=== PATIENT | female | born 1940 | race Caucasian/White ===

== ENCOUNTER → 2017-07-11 | Outpatient (CLI) | payer BC, MEDICARE ==
--- NOTE | 2017-07-11 17:15 | BD ---
EXAMINATION TYPE: MG DEXA axial skeleton. DATE OF EXAM: 07/11/2017 COMPARISON: NONE CLINICAL HISTORY: 76-year-old female with thoracolumbar postural kyphosis, postmenopausal screening Height: 56.5 IN. VERY KYPHOTIC Weight: 122 LBS FRAX RISK QUESTIONS: Alcohol (3 or more units per day): NO Family History (Parent hip fracture): NO Glucocorticoids (More than 3mos): NO (Ex: prednisone, prednisolone, methylprednisolone, dexamethasone, and hydrocortisone). History of Fracture in Adulthood: YES LEFT WRIST AGE 48 Secondary Osteoporosis: 1. Type 1 Diabetes: NO 2. Hyperthyroidism: NO 3. Menopause before 45: YES AGE 32 4. Malnutrition: NO 5. Chronic liver disease: NO Rheumatoid Arthritis: NO Current Tobacco Use: NO RISK FACTORS HISTORY OF: Hip Fracture (Right): When: AGE 70 AND 71 History of Wrist Fracture: YES When: LT WRIST AGE 48 Surgery to Spine/Hip(right) : YES When: AGE 70 Family History of Osteoporosis: MOTHER Active: NO Postmenopausal woman: AGE 32 Lost more than 2 inches in height since high school: YES 6" MEDICATIONS: Thyroid Medications: YES Which medication: Levothyroxine How Lon+ YEARS Osteoporosis Medications: NOT NOW Which medication: DOES NOT KNOW How Lon YEAR Additional Medications: THYROID AND BLOOD PRESSURE EXAM MEASUREMENTS: Bone mineral densitometry was performed using the [employer] System. L-SPINE NOT DONE PT HAD A FUSION Bone mineral density about the L hip (g/cm2): 0.585 T Score values are as follows: -----L Neck: -3.3 -----L Total: -3.0 Bone mineral density BASELINE IMPRESSION: Osteoporosis (T Score less than -2.5). There is increased fracture risk and therapy is usually indicated based on age. Re-Screen 1-2 years. NOTE: T-SCORE=SD OF THE YOUNG ADULT MEAN.
== END | disposition home or self-care (01) ==
LOC: RADBDWWP 13:05
PROVIDERS: ATTEND Family Medicine
DX: M81.0 Age-related osteoporosis without current pathological fracture (principal)
CPT/HCPCS: 77080

== ENCOUNTER 2017-07-14 13:40 | Inpatient (IN) | payer MEDICARE ==
[2017-07-14] MEDS ORDERED: PIPERACILLIN-TAZOBACTAM 3.375 GM in DEXTROSE/WATER 1 50ML.BAG IVPB STA (13:52)
[2017-07-14] MEDS ORDERED: VANCOMYCIN IV PER PHARMACY 1 EACH MISC MISCELLANE PRN (13:52)
[2017-07-14] MEDS ORDERED: VANCOMYCIN 1,000 MG in SODIUM CHLORIDE 0.9% 250 ML IVPB STA (14:29)
[2017-07-14] MEDS ORDERED: cefTRIAXone 2,000 MG in SODIUM CHLORIDE 0.9% 100 ML IVPB STA ×2 (14:44→14:48)
[2017-07-14 14:50] LABS: Basophils % (A) 0 %; Eosinophils % (A) 0 %; HCT 37.1 % (34.0-46.0); HGB 12.4 gm/dL (11.4-16.0); Lymphocytes # (A) 0.6 k/uL (1.0-4.8); Lymphocytes % (A) 5 %; MCH 30.6 pg (25.0-35.0); MCHC 33.5 g/dL (31.0-37.0); Mean Platelet Volume 7.6; Monocytes # (A) 0.7 k/uL (0-1.0); Monocytes % (A) 6 %; Neutrophils # (A) 9.9 k/uL (1.3-7.7); Neutrophils % (A) 88 %; Platelet Count 273 k/uL (150-450); RBC 4.06 m/uL (3.80-5.40); RDW 13.1 % (11.5-15.5); WBC 11.3 k/uL (3.8-10.6)
[2017-07-14 14:52] LABS: Appearance,Urine Turbid (Clear); Bacteria,Urine Occasional /hpf; Bilirubin,Urine Negative (Negative); Blood,Urine Trace (Negative); Color,Urine Light Red; Glucose,Urine (UA) Negative (Negative); Ketones,Urine Negative (Negative); Leukocyte Esterase,Urine Small (Negative); MCV 91.4 fL (80.0-100.0); Nitrite,Urine Negative (Negative); PH, Urine 8.5 (5.0-8.0); Partial Thromboplastin Time 23.2 sec (22.0-30.0); Protein,Urine 3+ (Negative); Prothrombin Time 10.1 sec (9.0-12.0); RBC,Urine 10 /hpf (0-5); Specific Gravity,Urine 1.016 (1.001-1.035); Urobilinogen,Urine <2.0 mg/dL (<2.0); WBC,Urine 52 /hpf (0-5)
[2017-07-14 14:57] LABS: Albumin 3.7 g/dL (3.5-5.0); Potassium 4.2 mmol/L (3.5-5.1); Total Bilirubin 0.4 mg/dL (0.2-1.3); Total Protein 6.7 g/dL (6.3-8.2)
--- NOTE | 2017-07-14 14:58 | CT ---
EXAMINATION: CT brain wo con DATE AND TIME: 07/14/2017 2:47 PM ORDERING PROVIDER: Jenn Reyes MD CLINICAL INDICATION: Pain TECHNIQUE: Standard departmental protocol. COMPARISON: None. DESCRIPTION: The calvarium is intact. There is no intracranial hemorrhage. There is no mass or mass e ffect. There is no definite new attenuation defect. Remainder of the intra-axial and extra-axial comp artment examination is unremarkable. The paranasal sinuses, middle ear cavities, and mastoid sinus ai r cells are clear. The orbits are intact. IMPRESSION: NO ACUTE PROCESS.
[2017-07-14] MEDS ORDERED: cefTRIAXone IN SWFI 2,000 MG/20 ML SYRINGE IVP ONE (15:00)
[2017-07-14] MEDS: SODIUM CHLORIDE 0.9% 500 ML IV SCH ×2 (15:01→17:06)
[2017-07-14 15:19] LABS: Creatine Kinase MB 47.5 ng/mL (0.0-2.4)
--- NOTE | 2017-07-14 15:19 | XR ---
EXAMINATION: XR chest 2V DATE AND TIME: 07/14/2017 3:01 PM ORDERING PROVIDER: Jenn Reyes MD CLINICAL INDICATION: Fever TECHNIQUE: PA and lateral COMPARISON: None. DESCRIPTION: There is a fine reticular pattern of increased density throughout the lung parenchyma wh ich silhouettes the pulmonary vasculature to a moderate-marked degree and is associated with septal l lynda at the periphery bilaterally. These findings are consistent with interstitial phase pulmonary ed evan. There is no focal lung consolidation to suggest cielo bronchopneumonia. No pleural effusions; no abnormal gas collections. Bilateral apical pleural thickening is noted, greater on the left. The overlying ribs are intact. Mildly enlarged cardiac silhouette and tortuosity of the thoracic aorta noted. No acute bony or soft tissue findings. IMPRESSION: 1. INTERSTITIAL PHASE PULMONARY EDEMA, PRESUMABLY CARDIOGENIC ETIOLOGY. 2. Bilateral apical capping noted, with prominent on the left. There are no prior studies with which to compare. If none can be found for a comparison addendum could be made to this report, then would suggest 3 month interval follow-up CT to further characterize.
[2017-07-14 15:20] LABS: Troponin I 0.089 ng/mL (0.000-0.034)
--- NOTE | 2017-07-14 15:21 | XR ---
PROCEDURE: XR Hip Complete RT 2 views DATE AND TIME: 07/14/2017 3:01 PM REFERRING PHYSICIAN: Jenn Reyes MD CLINICAL INDICATION: PHH, Pain TECHNIQUE: AP and frog-leg lateral coned radiographs were obtained. COMPARISON: None FINDINGS: The hip prosthesis is intact. No periprosthesis lucencies. There is no fracture or malalign ment. The soft tissues are unremarkable. IMPRESSION: NO ACUTE PROCESS.
--- NOTE | 2017-07-14 16:05 | XR ---
PROCEDURE: XR ankle complete bilateral, 6 views DATE AND TIME: 07/14/2017 3:53 PM REFERRING PHYSICIAN: Jenn Reyes MD CLINICAL INDICATION: PHH, Pain. Bilateral wounds to area of distal anterior ankle/proximal dorsal dana t TECHNIQUE: Department protocol. COMPARISON: None FINDINGS: Bones and joints and soft tissues, of the right ankle and the left ankle, are unremarkable. IMPRESSION: NO ACUTE PROCESS.
--- NOTE | 2017-07-14 16:09 | XR ---
PROCEDURE: XR lumbar spine 3V DATE AND TIME: 07/14/2017 3:53 PM REFERRING PHYSICIAN: Jenn Reyes MD CLINICAL INDICATION: PHH, Pain TECHNIQUE: Department protocol. COMPARISON: None FINDINGS: Methylmethacrylate is seen within the L2 vertebral body posteriorly, appearing to represent postvertebroplasty change. There is moderate compression of the L2 vertebral body. At L3, there is marked compression of the vertebral body. No other findings. IMPRESSION: L2 and L3 vertebral body compressions, determining their age can't be assessed with MRI if necessary.
[2017-07-14] MEDS ORDERED: NALOXONE 0.4 MG/ML 1 ML VIAL IV PRN (16:43)
--- NOTE | 2017-07-14 16:43 | ED ---
Fall HPI - General Chief Complaint: Fall Stated Complaint: ALTERED MENTAL STATUS Time Seen by Provider: 07/14/17 13:48 Source: patient, EMS Mode of arrival: EMS - History of Present Illness Initial Comments: 76 years old female lives home alone the area and also her last night she was doing fine today she went to check on her and she found her on the floor we don' t exactly how long she been on the floor she injured her both ankles they were stuck under the bed and she also has a large wound on her right hip. She has had for patient is complaining about headache and right ear pain pain in the both ankles and pain in the lumbar spine, she do not recall the details about the fall she do not know how long she been on the floor. Denies any chest pain now she'll no shortness of breath no abdominal pain she does have a pain in the lower back - Related Data Home Medications Medication Instructions Recorded Confirmed Levothyroxine Sodium [Synthroid] 112 mcg PO DAILY 07/14/17 07/14/17 Allergies Allergy/AdvReac Type Severity Reaction Status Date / Time Penicillins Allergy Unknown Verified 07/14/17 14:22 Review of Systems ROS Statement: Those systems with pertinent positive or pertinent negative responses have been documented in the HPI. ROS Other: All systems not noted in ROS Statement are negative. Past Medical History Past Medical History: Hypertension, Thyroid Disorder History of Any Multi-Drug Resistant Organisms: None Reported Past Surgical History: Appendectomy, Hysterectomy Additional Past Surgical History / Comment(s): hip hemorroids Past Psychological History: No Psychological Hx Reported Smoking Status: Former smoker Past Alcohol Use History: None Reported Past Drug Use History: None Reported General Exam - General Exam Comments Initial Comments: General: The patient is awake , looks pale and sick GCS is 15 Skin: Skin is warm and dry and no rashes or lesions are noted. There is a large wound on the right greater trochanter area is about 7 cm in diameter noticed some erythema surrounding it might was swabbed Eye: Pupils are equal, round and reactive to light, extra-ocular movements are intact; there is normal conjunctiva bilaterally. Ears, nose, mouth and throat: There are moist mucous membranes and no oral lesions. Neck: The neck is supple, there is no tenderness or JVD. Cardiovascular: There is a regular rate and rhythm. No murmur, rub or gallop is appreciated. Respiratory: To auscultation bilateral, decreased breath sounds bilateral noticed some crackles at the bases right more than the left Gastrointestinal: Soft, non-distended, non-tender abdomen without masses or organomegaly noted. There is no rebound or guarding present. Bowel sounds are unremarkable. Back: There is no tenderness to palpation in the midline. There is no obvious deformity. Musculoskeletal: Normal ROM, no tenderness, There is no pedal edema. There is no calf tenderness or swelling. No cords were appreciated. Noticed some erythema as well as skin tear around the ankle on the left one is at the proximal dorsal surface 1.5 x 0.3 cm this wound looks old, noticed some contusion on the right ankle as well there was no tear or laceration Neurological: CN II-XII intact, Cranial nerves III through XII are intact. There are no obvious motor or sensory deficits. Coordination appears grossly intact. Speech is normal. Psychiatric: Cooperative, appropriate mood & affect, normal judgment. Limitations: no limitations Course Vital Signs 07/14/17 07/14/17 13:43 15:35 Temperature 96.9 F L Pulse Rate 59 L 73 Respiratory 18 18 Rate Blood Pressure 126/58 143/68 EKG is junctional rhythm ventricular rate is 62 [place] interval is, QRS duration is 80 QT/QTc is 454/460 review of this EKG does not demonstrate very clear P waves with the RN and are upright regular review of this EKG did not reveal any ST elevation or ST depression Patient was reassessed, white count is 11.3 creatinine is 1.20 was used to be 0.9 just a week ago her troponin is 0089 and x-rays unremarkable he is unremarkable head CT is unremarkable noticed that CK is quite elevated consistent with the abdomen is sinus troponin is elevated noticed some compression fractures on the lumbar spine, patient is currently admitted to Dr. Hays service, cardiology be consulted down considering troponin is elevated and she is given need a PT and OT for her compression fractures along with the pain meds that a consult nephrology for rehab go and infectious disease be consulted that as well Medical Decision Making - Lab Data Result diagrams: 07/14/17 14:20 07/14/17 14:20 Lab Results 07/14/17 07/14/17 07/14/17 Range/Units 14:20 14:20 14:20 WBC 11.3 H (3.8-10.6) k/uL RBC 4.06 (3.80-5.40) m/uL Hgb 12.4 (11.4-16.0) gm/dL Hct 37.1 (34.0-46.0) % MCV 91.4 D (80.0-100.0) fL MCH 30.6 (25.0-35.0) pg MCHC 33.5 (31.0-37.0) g/dL RDW 13.1 (11.5-15.5) % Plt Count 273 (150-450) k/uL Neutrophils % 88 % Lymphocytes % 5 % Monocytes % 6 % Eosinophils % 0 % Basophils % 0 % Neutrophils # 9.9 H (1.3-7.7) k/uL Lymphocytes # 0.6 L (1.0-4.8) k/uL Monocytes # 0.7 (0-1.0) k/uL Eosinophils # 0.0 (0-0.7) k/uL Basophils # 0.0 (0-0.2) k/uL PT (9.0-12.0) sec INR (<1.2) APTT (22.0-30.0) sec Sodium 139 (137-145) mmol/L Potassium 4.2 (3.5-5.1) mmol/L Chloride 103 (98-107) mmol/L Carbon Dioxide 22 (22-30) mmol/L Anion Gap 14 mmol/L BUN 45 H (7-17) mg/dL Creatinine 1.20 H (0.52-1.04) mg/dL Est GFR (CKD-EPI)AfAm 50 (>60 ml/min/1.73 sqM) Est GFR (CKD-EPI)NonAf 44 (>60 ml/min/1.73 sqM) Glucose 106 H (74-99) mg/dL Plasma Lactic Acid Hossein (0.7-2.0) mmol/L Calcium 11.0 H (8.4-10.2) mg/dL Total Bilirubin 0.4 (0.2-1.3) mg/dL AST 87 H (14-36) U/L ALT 42 (9-52) U/L Alkaline Phosphatase 100 (38-126) U/L Total Creatine Kinase 4556 H (30-135) U/L CK-MB (CK-2) 47.5 H* (0.0-2.4) ng/mL CK-MB (CK-2) Rel Index Troponin I 0.089 H* (0.000-0.034) ng/mL Total Protein 6.7 (6.3-8.2) g/dL Albumin 3.7 (3.5-5.0) g/dL Urine Color Urine Appearance (Clear) Urine pH (5.0-8.0) Ur Specific [place] (1.001-1.035) Urine Protein (Negative) Urine Glucose (UA) (Negative) Urine Ketones (Negative) Urine Blood (Negative) Urine Nitrite (Negative) Urine Bilirubin (Negative) Urine Urobilinogen (<2.0) mg/dL Ur Leukocyte Esterase (Negative) Urine RBC (0-5) /hpf Urine WBC (0-5) /hpf Urine Bacteria (None) /hpf 07/14/17 07/14/17 07/14/17 Range/Units 14:20 14:20 14:29 WBC (3.8-10.6) k/uL RBC (3.80-5.40) m/uL Hgb (11.4-16.0) gm/dL Hct (34.0-46.0) % MCV (80.0-100.0) fL MCH (25.0-35.0) pg MCHC (31.0-37.0) g/dL RDW (11.5-15.5) % Plt Count (150-450) k/uL Neutrophils % % Lymphocytes % % Monocytes % % Eosinophils % % Basophils % % Neutrophils # (1.3-7.7) k/uL Lymphocytes # (1.0-4.8) k/uL Monocytes # (0-1.0) k/uL Eosinophils # (0-0.7) k/uL Basophils # (0-0.2) k/uL PT 10.1 (9.0-12.0) sec INR 1.0 (<1.2) APTT 23.2 (22.0-30.0) sec Sodium (137-145) mmol/L Potassium (3.5-5.1) mmol/L Chloride (98-107) mmol/L Carbon Dioxide (22-30) mmol/L Anion Gap mmol/L BUN (7-17) mg/dL Creatinine (0.52-1.04) mg/dL Est GFR (CKD-EPI)AfAm (>60 ml/min/1.73 sqM) Est GFR (CKD-EPI)NonAf (>60 ml/min/1.73 sqM) Glucose (74-99) mg/dL Plasma Lactic Acid Hossein 1.0 (0.7-2.0) mmol/L Calcium (8.4-10.2) mg/dL Total Bilirubin (0.2-1.3) mg/dL AST (14-36) U/L ALT (9-52) U/L Alkaline Phosphatase (38-126) U/L Total Creatine Kinase (30-135) U/L CK-MB (CK-2) (0.0-2.4) ng/mL CK-MB (CK-2) Rel Index Troponin I (0.000-0.034) ng/mL Total Protein (6.3-8.2) g/dL Albumin (3.5-5.0) g/dL Urine Color Light Red Urine Appearance Turbid H (Clear) Urine pH 8.5 H (5.0-8.0) Ur Specific [place] 1.016 (1.001-1.035) Urine Protein 3+ H (Negative) Urine Glucose (UA) Negative (Negative) Urine Ketones Negative (Negative) Urine Blood Trace H (Negative) Urine Nitrite Negative (Negative) Urine Bilirubin Negative (Negative) Urine Urobilinogen <2.0 (<2.0) mg/dL Ur Leukocyte Esterase Small H (Negative) Urine RBC 10 H (0-5) /hpf Urine WBC 52 H (0-5) /hpf Urine Bacteria Occasional H (None) /hpf Disposition Clinical Impression: Fall, Rhabdomyolysis, Renal insufficiency, Unspecified open wound, right hip, initial encounter, Elevated troponin, Compression fracture Disposition: ADMITTED IP TO THIS HOSP Condition: Good Referrals: Jeevan Reilly DO [Primary Care Provider] - 1-2 days
[2017-07-14] MEDS ORDERED: ENOXAPARIN 30 MG/0.3 ML SYRINGE SQ STA (17:39)
[2017-07-14] MEDS: SODIUM CHLORIDE 0.9% 1,000 ML IV SCH (20:16)
[2017-07-14 20:29] LABS: Glucose,Whole Blood 81 mg/dL (75-99)
--- NOTE | 2017-07-14 21:11 | HP ---
HISTORY AND PHYSICAL DATE OF SERVICE: 07/14/2017. CHIEF COMPLAINT: Fall and change in mental status. HISTORY OF PRESENT ILLNESS: This 76-year-old woman with a past medical history of multiple medical problems including hypertension, hypothyroidism, appendectomy and hysterectomy, being followed by Dr. Reilly in the outpatient setting, apparently was found on the floor and the patient was down for an unknown length of time. The patient's ankles were stuck under the bed. The patient was confused. Patient has a large wound on her right hip. The patient was taken to [facility] and admitted for evaluation and treatment. There is no history of any fever, rigors. No headache or loss of consciousness. The patient is confused, is unable to give a coherent history. Multiple CT scans and x-rays were done. Brain CT scan showed no acute process. The chest x-ray showed interstitial lung edema and bilateral apical capping. Otherwise, hip x-rays showed no acute process. Ankle x-rays were also done which showed no acute process. Lumbar x-rays showed L2-L3 vertebral compression. Most of the history is taken from my discussion with staff. Otherwise the patient is being closely monitored at this time. PAST MEDICAL HISTORY: History of hypertension, hypothyroidism, history of appendectomy and hysterectomy. MEDICATIONS PRIOR TO ADMISSION: Levothyroxine 112 mcg p.o. daily. ALLERGIES: PENICILLIN. FAMILY HISTORY, SOCIAL HISTORY, REVIEW OF SYSTEMS: Could not be taken at length because of the patient's change in mental status. Previous history of smoking per chart. PHYSICAL EXAM: Patient is conscious, confused. Pulse 81, blood pressure 140/60, respirations 18, temperature 98.3, pulse ox 97% on 2 L. HEENT: Conjunctivae normal. Oral mucosa moist. NECK: No jugular venous distention. No carotid enlargement. CARDIOVASCULAR: S1 and S2 muffled. LUNGS: Breath sounds decreased at the bases. Few scattered rhonchi, no crackles. ABDOMEN: Soft, nontender. No mass palpable. LEGS: Bilateral leg swelling and erythema and cellulitis present. Also sacral decubitus present. NERVOUS SYSTEM: Higher functions as mentioned. Diffusely weak. LYMPHATICS: No lymph nodes palpable in the neck or axillae. SKIN: No rashes. LABS: WBC 11.3, otherwise lactic acid is 1. Calcium is 11. Creatinine kinase 4556. ASSESSMENT: 1. Fall and gait dysfunction. 2. Acute rhabdomyolysis. 3. Troponin 0.08, indeterminate. 4. Possible urinary tract infection with sepsis. 5. Increased WBC. 6. History of fall and gait dysfunction. 7. Cellulitis. 8. Sacral decubitus. 9. Hypertension. 10.Hypothyroidism. 11.History of appendectomy. 12.FULL CODE. RECOMMENDATIONS: In this 76-year-old woman who presented with multiple complex medical issues, we will monitor the patient closely, continue the current management and symptomatic treatment. We will initiate broad-spectrum IV antibiotics. I would also recommend consulting Infectious Disease as well as Cardiology. PT/OT evaluation. bunk house worker consultation. Possible ECF rehab. Guarded prognosis because of multiple complex medical problems. Further recommendations to follow. MMODL / IJN: [id number] /
[2017-07-15 06:23] LABS: Glucose,Whole Blood 64 mg/dL (75-99)
[2017-07-15 06:28] LABS: Calcium 9.6 mg/dL (8.4-10.2); Potassium 3.9 mmol/L (3.5-5.1)
[2017-07-15] MEDS: LEVOTHYROXINE 112 MCG TAB PO SCH (06:40)
[2017-07-15] MEDS: PANTOPRAZOLE 40 MG TABLET PO SCH (06:40)
[2017-07-15] MEDS: SODIUM CHLORIDE 0.9% 1,000 ML IV SCH (06:40)
[2017-07-15 06:57] LABS: Glucose,Whole Blood 91 mg/dL (75-99)
[2017-07-15] MEDS: VANCOMYCIN 1,000 MG in SODIUM CHLORIDE 0.9% 250 ML IVPB SCH (08:25)
[2017-07-15] MEDS: FOLIC ACID 1 MG TAB PO SCH (08:26)
[2017-07-15] MEDS: MULTIVITAMINS, THERA 1 EACH TAB PO SCH (08:26)
[2017-07-15] MEDS: THIAMINE 100 MG TAB PO SCH (08:26)
[2017-07-15] MEDS: ENOXAPARIN 30 MG/0.3 ML SYRINGE SQ SCH ×2 (08:26→20:35)
--- NOTE | 2017-07-15 09:06 | P.NPCON ---
History of Present Illness - Reason for Consult Consult date: 07/15/17 (Rhabdomyolysis) - Chief Complaint Fall and mental status changes - History of Present Illness Mrs De Jesus is a 76-year-old female brought into the hospital with fall and mental status changes. She has multiple medical problems including hypertension hypothyroid. She had normal renal function on presentation but her CPK was in 5000, and nephrology was consulted for rhabdomyolysis. She is making good amount of urine currently on IV fluids 0.9 normal saline at 125 ML' s an hour. Still confused. She is also on antibiotics for concern for cellulitis. Review of Systems Unable to obtain because of her mental status changes Past Medical History Past Medical History: Hypertension, Thyroid Disorder History of Any Multi-Drug Resistant Organisms: None Reported Past Surgical History: Appendectomy, Hysterectomy Additional Past Surgical History / Comment(s): hip hemorroids Past Psychological History: No Psychological Hx Reported Smoking Status: Former smoker Past Alcohol Use History: None Reported Past Drug Use History: None Reported Medications and Allergies Home Medications Medication Instructions Recorded Confirmed Type Levothyroxine Sodium [Synthroid] 112 mcg PO DAILY 07/14/17 07/14/17 History Allergies Allergy/AdvReac Type Severity Reaction Status Date / Time Penicillins Allergy Unknown Verified 07/14/17 14:22 Physical Exam Vitals: Vital Signs Temp Pulse Pulse Resp BP BP Pulse Ox 07/15/17 08:41 96 07/15/17 08:00 98.1 F 57 L 16 120/60 100 07/15/17 04:00 97.2 F L 63 16 120/56 98 07/15/17 00:00 97.0 F L 67 18 125/65 98 07/14/17 20:00 97.6 F 66 18 163/71 100 07/14/17 18:51 96.3 F L 63 16 147/65 100 07/14/17 18:18 81 18 145/69 97 07/14/17 17:21 61 18 145/65 100 07/14/17 15:35 73 18 143/68 07/14/17 13:43 96.9 F L 59 L 18 126/58 Intake and Output 07/14/17 07/15/17 07/15/17 22:59 06:59 14:59 Intake Total 1200 600 Balance 1200 600 Intake: Amount of Fluid Infused ( 1200 ml) Intake, IV Titration 600 Amount Sodium Chloride 0.9% 1, 600 000 ml @ 75 mls/hr IV . [id number] [facility] Rx#:[id number] Other: Voiding Method Diaper Diaper Incontinent Incontinent Weight 51 kg Lying in bed no acute distress S1-S2 heard Abdomen soft bowel sounds present Lungs clear No edema Results - Lab Results Most recent lab results Calcium 9.6 mg/dL (8.4-10.2) 07/15/17 05:51 07/14/17 14:20 07/15/17 05:51 Assessment and Plan Assessment: Impression: #1 elevated CPK with a concern for rhabdomyolysis. #2 elevated BUN with normal creatinine concern for prerenal process. #3 fall with altered mental status #4 hypothyroidism #5 hypertension, controlled not on any medications now. Goal less than 140/90. Recommendations: #1 continue with IV fluids. Change normal saline to lactated Ringer's. #2 repeat labs in the morning including TSH. #3 keep Vanco trough level less than 20, with concern for a BEATRIS. Thank you very much for this consultation we will follow along while she is in the hospital.
--- NOTE | 2017-07-15 10:34 | P.CRDCN ---
History of Present Illness Consult date: 07/15/17 Chief complaint: weakness History of present illness: this is a pleasant 76-year-old female patient who was brought by her family to the emergency room because she was found on the floor in her apartment. The patient apparently lives by herself in an apartment. The patient herself is a very poor historian and seems to be slightly confused. Her son was found her on the floor for unknown down time. There is no indication of any chest pain or chest discomfort for or shortness of breath or dizziness or lightheadedness or syncope. It seems that the patient fell out of her bed. She also was found to have stage III ulcer at the right hip. We get involved in the care of the patient because of mildly abnormal cardiac enzymes including mildly abnormal troponin. But the patient was found to have severe lead elevated CK consistent with rhabdomyolysis. Beside that she was also dehydrated likely because decrease oral intake. She did also have mildly abnormal kidney function.The EKG showed sinus rhythm without any ST or T-wave abnormalities. The chest x-ray did not show any acute abnormalities. it seems that after the patient was started on IV fluid, her kidney function has improved. Past Medical History Past Medical History: Hypertension, Thyroid Disorder History of Any Multi-Drug Resistant Organisms: None Reported Past Surgical History: Appendectomy, Hysterectomy Additional Past Surgical History / Comment(s): hip hemorroids Past Psychological History: No Psychological Hx Reported Smoking Status: Former smoker Past Alcohol Use History: None Reported Past Drug Use History: None Reported Medications and Allergies Home Medications Medication Instructions Recorded Confirmed Type Levothyroxine Sodium [Synthroid] 112 mcg PO DAILY 07/14/17 07/14/17 History Allergies Allergy/AdvReac Type Severity Reaction Status Date / Time Penicillins Allergy Unknown Verified 07/14/17 14:22 Physical Exam Vitals: Vital Signs Temp Pulse Pulse Resp BP BP Pulse Ox 07/15/17 08:41 96 07/15/17 08:00 98.1 F 57 L 16 120/60 100 07/15/17 04:00 97.2 F L 63 16 120/56 98 07/15/17 00:00 97.0 F L 67 18 125/65 98 07/14/17 20:00 97.6 F 66 18 163/71 100 07/14/17 18:51 96.3 F L 63 16 147/65 100 07/14/17 18:18 81 18 145/69 97 07/14/17 17:21 61 18 145/65 100 07/14/17 15:35 73 18 143/68 07/14/17 13:43 96.9 F L 59 L 18 126/58 Intake and Output 07/14/17 07/15/17 07/15/17 22:59 06:59 14:59 Intake Total 1200 600 Balance 1200 600 Intake: Amount of Fluid Infused ( 1200 ml) Intake, IV Titration 600 Amount Sodium Chloride 0.9% 1, 600 000 ml @ 75 mls/hr IV . [id number] [facility] Rx#:[id number] Other: Voiding Method Diaper Diaper Incontinent Incontinent Weight 51 kg - Constitutional General appearance: no acute distress - Respiratory Respiratory: bilateral: CTA - Cardiovascular Rhythm: regular Heart sounds: normal: S1, S2 Results 07/14/17 14:20 07/15/17 05:51 Cardiac Enzymes 07/14/17 07/14/17 07/14/17 Range/Units 14:20 14:20 21:02 AST 87 H (14-36) U/L CK-MB (CK-2) 47.5 H* (0.0-2.4) ng/mL Troponin I 0.089 H* 0.065 H* (0.000-0.034) ng/mL 07/15/17 Range/Units 05:51 AST (14-36) U/L CK-MB (CK-2) (0.0-2.4) ng/mL Troponin I 0.045 H* (0.000-0.034) ng/mL Coagulation 07/14/17 Range/Units 14:20 PT 10.1 (9.0-12.0) sec APTT 23.2 (22.0-30.0) sec CBC 07/14/17 Range/Units 14:20 WBC 11.3 H (3.8-10.6) k/uL RBC 4.06 (3.80-5.40) m/uL Hgb 12.4 (11.4-16.0) gm/dL Hct 37.1 (34.0-46.0) % Plt Count 273 (150-450) k/uL Comprehensive Metabolic Panel 07/14/17 07/15/17 Range/Units 14:20 05:51 Sodium 139 141 (137-145) mmol/L Potassium 4.2 3.9 (3.5-5.1) mmol/L Chloride 103 110 H (98-107) mmol/L Carbon Dioxide 22 23 (22-30) mmol/L BUN 45 H 35 H (7-17) mg/dL Creatinine 1.20 H 0.85 (0.52-1.04) mg/dL Glucose 106 H 67 L (74-99) mg/dL Calcium 11.0 H 9.6 (8.4-10.2) mg/dL AST 87 H (14-36) U/L ALT 42 (9-52) U/L Alkaline Phosphatase 100 (38-126) U/L Total Protein 6.7 (6.3-8.2) g/dL Albumin 3.7 (3.5-5.0) g/dL Current Medications Generic Name Dose Route Start Last Admin Trade Name Freq PRN Reason Stop Dose Admin Acetaminophen 650 mg 07/14/17 16:43 Tylenol Tab PO Q6HR PRN Mild Pain or Fever > 100.5 Hydrocodone Bitart/Acetaminophen 1 each 07/14/17 19:28 [place] 5-325 PO Q6HR PRN Moderate Pain Aspirin 325 mg 07/16/17 09:00 Aspirin PO DAILY [facility] Ceftriaxone Sodium 2,000 mg 07/15/17 16:00 Rocephin IVP Q24H [facility] Enoxaparin Sodium 30 mg 07/15/17 09:00 07/15/17 08:26 Lovenox SQ 30 mg Q12HR [facility] Administration Folic Acid 1 mg 07/15/17 12:00 07/15/17 08:26 Folic Acid PO 1 mg DAILY@1200 [facility] Administration Vancomycin HCl 1,000 mg/ 250 mls @ 125 mls/hr 07/15/17 09:00 07/15/17 08:25 Sodium Chloride IVPB 125 mls/hr DAILY [facility] Administration Lactated Ringer's 1,000 mls @ 75 mls/hr 07/15/17 09:00 Lactated Ringers IV .[id number] [facility] Levothyroxine Sodium 112 mcg 07/15/17 06:30 07/15/17 06:40 Synthroid PO 112 mcg DAILY@0630 [facility] Administration Multivitamins 1 each 07/15/17 12:00 07/15/17 08:26 Theragran PO 1 each DAILY@1200 [facility] Administration Naloxone HCl 0.2 mg 07/14/17 16:43 Narcan IV Q2M PRN Opioid Reversal Pantoprazole Sodium 40 mg 07/15/17 07:30 07/15/17 06:40 Protonix PO 40 mg [id number] [facility] Administration Thiamine HCl 100 mg 07/15/17 12:00 07/15/17 08:26 Vitamin B-1 PO 100 mg DAILY@1200 [facility] Administration Intake and Output 07/14/17 07/15/17 07/15/17 22:59 06:59 14:59 Intake Total 1200 600 Balance 1200 600 Intake: Amount of Fluid Infused ( 1200 ml) Intake, IV Titration 600 Amount Sodium Chloride 0.9% 1, 600 000 ml @ 75 mls/hr IV . [id number] [facility] Rx#:[id number] Other: Voiding Method Diaper Diaper Incontinent Incontinent Weight 51 kg 07/14/17 14:20 07/15/17 05:51 Assessment and Plan Assessment: assessment #1 rhabdomyolysis #2 dehydration secondary to decreased oral intake #3 acute renal failure which has improved on IV fluid #4 mildly abnormal cardiac enzymes #5 change in mental status Plan #1 I would consider a conservative medical approach for this 76-year-old female patient who does have poor function and does have possible underlying dementia #2 I am going to add aspirin to the current medical treatment #3 obtain an echocardiogram was Doppler #4 follow-up with the patient Thank you for allowing us but spitting her care and we'll continue following up with the patient
[2017-07-15 12:33] LABS: Glucose,Whole Blood 73 mg/dL (75-99)
[2017-07-15 12:33] LABS: Glucose,Whole Blood 60 mg/dL (75-99)
[2017-07-15 13:47] LABS: Glucose,Whole Blood 90 mg/dL (75-99)
[2017-07-15] MEDS ORDERED: COLLAGENASE 250 UNIT/GM OINTMENT 30 GM TUBE TOPICAL SCH (16:30)
[2017-07-15] MEDS: LACTATED RINGERS 1,000 ML IV SCH ×2 (17:07→22:56)
[2017-07-15] MEDS: cefTRIAXone IN SWFI 2,000 MG/20 ML SYRINGE IVP SCH (17:07)
[2017-07-15] MEDS: COLLAGENASE 250 UNIT/GM OINTMENT 30 GM TUBE TOPICAL SCH (17:08)
[2017-07-15 17:49] LABS: Glucose,Whole Blood 78 mg/dL (75-99)
[2017-07-15 17:49] LABS: Glucose,Whole Blood 63 mg/dL (75-99)
[2017-07-15] MEDS: HYDROcodone/APAP 5-325MG 1 EACH TAB PO PRN (20:35)
[2017-07-15 21:09] LABS: Glucose,Whole Blood 130 mg/dL (75-99)
--- NOTE | 2017-07-15 22:03 | P.PN ---
Subjective Progress Note Date: 07/15/17 Principal diagnosis: Rhabdomyolysis Patient is a 76-year-old female with a known history of hypertension, hypothyroidism and dementia who was brought by her family to the emergency room because she was found on the floor in her apartment. Patient was found have acute kidney injury, rhabdomyolysis and slightly elevated troponin level along with possible UTI. 07/15/2017 Patient is a poor historian and most of the history was taken from the medical records and nursing staff. Currently patient is on one-to-one feeding and is tolerating oral diet slowly. Currently patient is on Ringer lactate. 2-D echocardiogram was ordered. Cardiology and nephrology is following. CPK level is still elevated. Otherwise no fever no chills. TSH level was ordered Review of systems could not be apparent from the patient Active Medications Generic Name Dose Route Start Last Admin Trade Name Freq PRN Reason Stop Dose Admin Acetaminophen 650 mg 07/14/17 16:43 Tylenol Tab PO Q6HR PRN Mild Pain or Fever > 100.5 Hydrocodone Bitart/Acetaminophen 1 each 07/14/17 19:28 07/15/17 20:35 [place] 5-325 PO 1 each Q6HR PRN Administration Moderate Pain Aspirin 325 mg 07/16/17 09:00 Aspirin PO DAILY [facility] Ceftriaxone Sodium 2,000 mg 07/15/17 16:00 07/15/17 17:07 Rocephin IVP 2,000 mg Q24H [facility] Administration Collagenase 1 applic 07/15/17 20:00 07/15/17 17:08 Santyl TOPICAL Not Given HS@2000 [facility] Enoxaparin Sodium 30 mg 07/15/17 09:00 07/15/17 20:35 Lovenox SQ 30 mg Q12HR [facility] Administration Folic Acid 1 mg 07/15/17 12:00 07/15/17 08:26 Folic Acid PO 1 mg DAILY@1200 [facility] Administration Vancomycin HCl 1,000 mg/ 250 mls @ 125 mls/hr 07/15/17 09:00 07/15/17 08:25 Sodium Chloride IVPB 125 mls/hr DAILY [facility] Administration Lactated Ringer's 1,000 mls @ 75 mls/hr 07/15/17 09:00 07/15/17 17:07 Lactated Ringers IV 75 mls/hr .[id number] [facility] Administration Levothyroxine Sodium 112 mcg 07/15/17 06:30 07/15/17 06:40 Synthroid PO 112 mcg DAILY@0630 [facility] Administration Multivitamins 1 each 07/15/17 12:00 07/15/17 08:26 Theragran PO 1 each DAILY@1200 [facility] Administration Naloxone HCl 0.2 mg 07/14/17 16:43 Narcan IV Q2M PRN Opioid Reversal Pantoprazole Sodium 40 mg 07/15/17 07:30 07/15/17 06:40 Protonix PO 40 mg [id number] [facility] Administration Thiamine HCl 100 mg 07/15/17 12:00 07/15/17 08:26 Vitamin B-1 PO 100 mg DAILY@1200 [facility] Administration Objective - Vital Signs Vital signs: Vital Signs Temp 98.1 F 07/15/17 08:00 Pulse 74 07/15/17 12:00 Resp 16 07/15/17 15:32 BP 116/56 07/15/17 12:00 Pulse Ox 97 07/15/17 12:00 Intake & Output 07/14/17 07/15/17 07/15/17 18:59 06:59 18:59 Intake Total 1200 600 610 Output Total 250 Balance 1200 600 360 Weight 51 kg 51 kg Intake: Amount of Fluid Infused ( 1200 ml) Intake, IV Titration 600 250 Amount Sodium Chloride 0.9% 1, 600 000 ml @ 75 mls/hr IV . [id number] [facility] Rx#:[id number] Vancomycin 1,000 mg In 250 Sodium Chloride 0.9% 250 ml @ 125 mls/hr IVPB DAILY [facility] Rx#:[id number] Oral 360 Output: Urine 250 Other: Voiding Method Diaper Diaper Incontinent Incontinent - Exam PHYSICAL EXAMINATION: Patient is lying in the bed comfortably, no acute distress, awake alert but not oriented. Patient is nonverbal and could not provide any history. HEENT: Normocephalic. Neck is supple. Pupils reactive. Nostrils clear. Oral cavity is moist. Ears reveal no drainage. Neck reveals no JVD, carotid bruits, or thyromegaly. CHEST EXAMINATION: Trachea is central. Symmetrical expansion. Lung rubalcava clear to auscultation and percussion. CARDIAC: Normal S1, S2 with no gallops. No murmurs ABDOMEN: Soft. Bowel sounds normal. No organomegaly. No abdominal bruits. Extremities: reveal no edema. No clubbing or cyanosis Neurologically awake, alert,. Able to move all extremities . No focal deficits noted Skin: No rash or skin lesions. Psychiatric: Cooperative. Could not bases completely Musculoskeletal: No joint swelling or deformity. Normal range of motion. - Labs CBC & Chem 7: 07/14/17 14:20 07/15/17 05:51 Labs: Abnormal Lab Results - Last 24 Hours (Table) 07/14/17 07/15/17 07/15/17 Range/Units 21:02 05:51 05:51 Chloride 110 H (98-107) mmol/L BUN 35 H (7-17) mg/dL Glucose 67 L (74-99) mg/dL POC Glucose (mg/dL) (75-99) mg/dL Creatine Kinase 5789 H (30-135) U/L Troponin I 0.065 H* 0.045 H* (0.000-0.034) ng/mL 07/15/17 07/15/17 07/15/17 Range/Units 06:20 12:09 12:23 Chloride (98-107) mmol/L BUN (7-17) mg/dL Glucose (74-99) mg/dL POC Glucose (mg/dL) 64 L 60 L 73 L (75-99) mg/dL Creatine Kinase (30-135) U/L Troponin I (0.000-0.034) ng/mL Microbiology - Last 24 Hours (Table) 07/14/17 14:20 Blood Culture - Preliminary Blood No Growth after 24 hours 07/14/17 14:15 Gram Stain - Preliminary Hip - Right Wound Culture - Preliminary 07/14/17 14:20 Urine Culture - Preliminary Urine,Catheterized Assessment and Plan Assessment: Acute rhabdomyolysis status post fall and was on the floor Acute kidney injury possible ATN Dehydration Elevated troponin level likely due to BEATRIS and rhabdomyolysis Dementia Possible urinary tract infection sepsis. Follow-up urine culture report Sacral decubitus ulcer Hypertension Hypothyroidism Plan: Patient be continued on IV hydration with Ringers lactate. Continue with antibiotics in the form of vancomycin and ceftriaxone and follow-up renal function. Urine culture report is pending. We'll follow-up TSH level. Cardiology and nephrology is following. Further recommendations based on the clinical course. Prognosis is guarded with multiple medical problems and comorbid conditions. Patient does have poor functional status. Continue with 1 :1 oral feeding. Time with Patient: Greater than 30
--- NOTE | 2017-07-15 22:45 | CONS ---
CONSULTATION DATE OF SERVICE: 07/15/2017 REASON FOR CONSULTATION: 1. Right hip wound. 2. UTI. HISTORY OF PRESENT ILLNESS: The patient is a 76-year-old female who was brought into the ER at [facility] yesterday afternoon after the patient was found on the floor, not exactly sure how long she had been on the floor. Apparently the patient also noticed to have wound on the right hip area, which the patient said she has had for a couple of weeks. She did have a fall a few weeks ago. The patient was complaining of pain in the right hip wound area, more of a dull aching pain 3 to 4/10, especially when he is touched. No significant drainage from it. Denies any high-grade fevers, rigors or chills. No chest pain, shortness of breath or cough. No abdominal pain or any diarrhea. With these symptoms, the patient has been evaluated by the ER physician. The patient did have a CT of the brain which was negative for any bleed. The patient did have x-rays of the hip with a hip prosthesis intact. No persistent lucencies or malalignment. No acute process. X-rays of the lumbar spine show no acute fracture. Chest x-ray was more interstitial edema. The patient does not have any fever. She has been admitted to the hospital and white count was elevated at 11.3. Troponin was slightly elevated. Urine was positive for leukocyte estrace and few WBC. She did have cultures obtained from the right hip as well as the urine, which are currently pending. She has been treated with Rocephin and vancomycin, and Infectious Disease was consulted for further recommendations regarding antibiotic therapy. REVIEW OF SYSTEMS: CONSTITUTIONAL: Positive for weakness. Denies any high-grade fever. EYES: No complaints. ENT: No complaints. RESPIRATORY: No complaints. CARDIOVASCULAR: No complaints. GENITOURINARY: As per HPI. GASTROINTESTINAL: No complaints. MUSCULOSKELETAL: As per HPI. PSYCHOLOGIC: No complaint. NEUROLOGIC: No complaint. PAST MEDICAL HISTORY: Significant for hypertension, hypothyroidism, hemorrhoids. PAST SURGICAL HISTORY: Appendectomy, hysterectomy. SOCIAL HISTORY: Remote history of smoking. No drug use. FAMILY HISTORY: No pertinent findings noticed. ALLERGIES: PENICILLIN however tolerated sulfa without any problems. MEDICATIONS: The patient is currently on Tylenol, Vina, aspirin, Rocephin 1 g daily, Lovenox , folic acid, lactated Ringer's, Synthroid, Theragran, Narcan, Protonix, vancomycin pharmacy to dose. EXAMINATION: Her blood pressure is 116/56 with a pulse of 74, temperature is 98.1, she is 97 % on 2 L nasal cannula. GENERAL DESCRIPTION: An elderly female lying in bed in no distress. No tachypnea or accessory muscle of respiration use. HEENT: Shows no pallor or scleral icterus. Oral mucosal membranes dry. NECK: Trachea central. No thyromegaly. LUNGS: Unlabored breathing. Clear to auscultation anteriorly. No wheeze or crackle. HEART: S1, S2. Regular rate and rhythm. ABDOMEN: Soft, no tenderness, no guarding or rigidity. EXTREMITIES: No edema of the feet. Examination of the right hip, the patient did have a wound with slough tissue and some necrotic area with minimal surrounding erythema. No foul smelling drainage. NEUROLOGIC: The patient is awake, alert, oriented. Mood affect normal. LABS: Hemoglobin is 12.4, white count 11.3, BUN of 35, creatinine 0.85, slightly elevated, CK of 5789. Cultures are currently pending. X-rays were negative for any fracture. DIAGNOSTIC IMPRESSION/PLAN: 1. Patient with right hip wound with some surrounding erythema. Did have significant amount of necrotic tissue, unstagable, and more of a chronic nature. Underlying x- ray negative for any bony changes. Clinically, suspicion low for underlying osteomyelitis, however, did have slight component of cellulitis likely from a gram- positive skin frances. 2. Patient noted to have a component of urinary tract infection and likely from enteric gram-negative that could have been responsible for her fall. 3. Patient did have a PENICILLIN ALLERGY which limits the number of antibiotics we can use. PLAN: 1. We will apply Santyl to the right hip surgical wound and may benefit by further debridement, for which general surgery should be consulted. 2. The patient is to be continued on vancomycin pharmacy to dose to target 15 while watching the kidney function very closely. 3. Rocephin 1 g daily to cover for the UTI. 4. Depending upon clinical response as well as cultures to further adjust medication if needed. Thank you for this consultation. Will follow the patient along with you. MMODL / IJN: [id number] / [facility]
[2017-07-16 05:45] LABS: Glucose,Whole Blood 76 mg/dL (75-99)
[2017-07-16 06:02] LABS: Anion Gap 5 mmol/L; Blood Urea Nitrogen 23 mg/dL (7-17); Calcium 9.3 mg/dL (8.4-10.2); Carbon Dioxide 24 mmol/L (22-30); Chloride 109 mmol/L (98-107); Glucose 78 mg/dL (74-99); Potassium 4.1 mmol/L (3.5-5.1); Sodium 138 mmol/L (137-145)
[2017-07-16 06:12] LABS: Creatine Kinase 2200 U/L (30-135)
[2017-07-16] MEDS: PANTOPRAZOLE 40 MG TABLET PO SCH (06:22)
[2017-07-16] MEDS: LEVOTHYROXINE 112 MCG TAB PO SCH (06:22)
[2017-07-16] MEDS: VANCOMYCIN 1,000 MG in SODIUM CHLORIDE 0.9% 250 ML IVPB SCH (07:37)
--- NOTE | 2017-07-16 08:35 | P.PN ---
Subjective Patient is seen in follow-up for rhabdomyolysis. Patient presented to the hospital due to mental status changes. Her CPK was elevated at 5789 and is down to 2200 this morning. She is currently maintained on LR at 75 mL an hour. Patient's currently resting in bed. She is not a reliable historian. She is nonoliguric. GFR is at baseline. Vital signs are stable. General: The patient appeared well nourished and normally developed. HEENT: Head exam is unremarkable. Neck is without jugular venous distension. LUNGS: Lungs are clear to auscultation and percussion. Breath sounds decreased. HEART: Rate and Rhythm are regular. First and second heart sounds normal. No murmurs, rubs or gallops. ABDOMEN: Abdominal exam reveals normal bowel sounds. Non-tender and non- distended. No evidence of peritonitis. EXTREMITITES: No clubbing, cyanosis, or edema. Objective - Vital Signs Vital signs: Vital Signs Temp 96.6 F L 07/16/17 08:00 Pulse 54 L 07/16/17 08:00 Resp 16 07/16/17 08:00 BP 121/60 07/16/17 08:00 Pulse Ox 96 07/16/17 08:00 Intake & Output 07/15/17 07/16/17 07/16/17 18:59 06:59 18:59 Intake Total 790 600 Output Total 250 400 Balance 540 200 Weight 52 kg Intake: Intake, IV Titration 250 600 Amount Lactated Ringers 1,000 ml 600 @ 75 mls/hr IV .[id number] [facility] Rx#:[id number] Vancomycin 1,000 mg In 250 Sodium Chloride 0.9% 250 ml @ 125 mls/hr IVPB DAILY [facility] Rx#:[id number] Oral 540 Output: Urine 250 400 Uretheral ([place]) 400 Other: Voiding Method Diaper Indwelling Catheter Incontinent - Labs CBC & Chem 7: 07/14/17 14:20 07/16/17 05:36 Labs: Abnormal Lab Results - Last 24 Hours (Table) 07/15/17 07/15/17 07/15/17 Range/Units 12:09 12:23 17:08 Chloride (98-107) mmol/L BUN (7-17) mg/dL POC Glucose (mg/dL) 60 L 73 L 63 L (75-99) mg/dL Creatine Kinase (30-135) U/L TSH (0.465-4.680) mIU/L 07/15/17 07/16/17 Range/Units 21:07 05:36 Chloride 109 H (98-107) mmol/L BUN 23 H (7-17) mg/dL POC Glucose (mg/dL) 130 H (75-99) mg/dL Creatine Kinase 2200 H (30-135) U/L TSH 5.410 H (0.465-4.680) mIU/L Microbiology - Last 24 Hours (Table) 07/14/17 14:20 Blood Culture - Preliminary Blood No Growth after 24 hours 07/14/17 14:15 Gram Stain - Preliminary Hip - Right Wound Culture - Preliminary Assessment and Plan Plan: Assessment: #1. Mild rhabdomyolysis likely related to immobility. CPK levels trending down. #2. Elevated BUN secondary to prerenal process. Improving with IV hydration. #3. Hypothyroidism maintained on levothyroxine. #4. Right hip wound maintain on antibiotics per infectious disease recommendations. #5. Proteinuria on urinalysis. No history of diabetes. Plan: Continue LR at 75 mL an hour. Repeat urinalysis and quantify proteinuria. Follow-up cultures. Repeat CPK level in the morning.
--- NOTE | 2017-07-16 11:01 | P.PN ---
Subjective Progress Note Date: 07/16/17 Principal diagnosis: Rhabdomyolysis This is a 76-year-old female who was initially brought into the hospital because she was found on the floor in her apartment. Cardiology consultation was requested to see the patient because of abnormality and cardiac enzymes. Patient's abnormality consistent with rhabdomyolysis. CK has been improving on a daily basis. The CK today is 2200. An echocardiogram with Doppler study has been performed but is yet pending. Blood pressure 120/60 with a heart rate in the 50s, 96% on room air. Sodium 138, potassium 4.1, BUN 23, creatinine 0.6. TSH level is 5.4. Patient continues to be on IV hydration. Objective - Vital Signs Vital signs: Vital Signs Temp 96.6 F L 07/16/17 08:00 Pulse 54 L 07/16/17 08:00 Resp 16 07/16/17 08:00 BP 121/60 07/16/17 08:00 Pulse Ox 96 07/16/17 08:00 Intake & Output 07/15/17 07/16/17 07/16/17 18:59 06:59 18:59 Intake Total 790 600 0 Output Total 250 400 Balance 540 200 0 Weight 52 kg Intake: Intake, IV Titration 250 600 Amount Lactated Ringers 1,000 ml 600 @ 75 mls/hr IV .[id number] [facility] Rx#:[id number] Vancomycin 1,000 mg In 250 Sodium Chloride 0.9% 250 ml @ 125 mls/hr IVPB DAILY [facility] Rx#:[id number] Oral 540 0 Output: Urine 250 400 Uretheral ([place]) 400 Other: Voiding Method Diaper Indwelling Catheter Indwelling Catheter Incontinent - Exam PHYSICAL EXAMINATION: HEENT: Head is atraumatic, normocephalic. Pupils equal, round. Neck is supple. There is no elevated jugular venous pressure. HEART EXAMINATION: Heart S1, S2 normal. No murmur or gallop heard. CHEST EXAMINATION: Lungs are clear to auscultation and precussion. No chest wall tenderness is noted on palpation or with deep breathing. ABDOMEN: Soft, nontender. Bowel sounds are heard. No organomegaly noted. EXTREMITIES: 2+ peripheral pulses with no evidence of peripheral edema and no calf tenderness noted. NEUROLOGIC patient is awake, confused. - Labs CBC & Chem 7: 07/14/17 14:20 07/16/17 05:36 Labs: Abnormal Lab Results - Last 24 Hours (Table) 07/15/17 07/15/17 07/15/17 Range/Units 12:09 12:23 17:08 Chloride (98-107) mmol/L BUN (7-17) mg/dL POC Glucose (mg/dL) 60 L 73 L 63 L (75-99) mg/dL Creatine Kinase (30-135) U/L TSH (0.465-4.680) mIU/L 07/15/17 07/16/17 Range/Units 21:07 05:36 Chloride 109 H (98-107) mmol/L BUN 23 H (7-17) mg/dL POC Glucose (mg/dL) 130 H (75-99) mg/dL Creatine Kinase 2200 H (30-135) U/L TSH 5.410 H (0.465-4.680) mIU/L Microbiology - Last 24 Hours (Table) 07/14/17 14:20 Blood Culture - Preliminary Blood No Growth after 24 hours 07/14/17 14:15 Gram Stain - Preliminary Hip - Right Wound Culture - Preliminary Assessment and Plan Plan: Assessment and plan #1 rhabdomyolysis, CK continues to improve, patient continues to be on IV hydration. #2 dehydration secondary to decreased fluid intake. #3 acute on chronic renal failure which is improving. #4 mental status change with underlying dementia. Plan From cardiology's perspective, we'll continue current therapy. We will review the patient's echocardiogram with Doppler study. DNP note has been reviewed, I agree with a documented findings and plan of care. Patient was seen and examined.
--- NOTE | 2017-07-16 11:38 | ECHOF ---
Referral Reason:nstemi MEASUREMENTS -------- HEIGHT: 157.5 cm WEIGHT: 51.7 kg BP: 143/67 RVIDd: 3.2 cm (< 3.3) IVSd: 1.2 cm (0.6 - 1.1) LVIDd: 3.4 cm (3.9 - 5.3) LVPWd: 1.0 cm (0.6 - 1.1) IVSs: 1.6 cm LVIDs: 2.0 cm LVPWs: 1.3 cm LA Diam: 3.6 cm (2.7 - 3.8) LAESV Index (A-L): 44.63 ml/m Ao Diam: 3.6 cm (2.0 - 3.7) AV Cusp: 2.0 cm (1.5 - 2.6) LA Diam: 3.5 cm (2.7 - 3.8) MV EXCURSION: 18.395 mm (> 18.000) MV EF SLOPE: 100 mm/s (70 - 150) EPSS: 0.5 cm MV E Rc: 0.89 m/s MV DecT: 176 ms MV A Rc: 0.67 m/s MV E/A Ratio: 1.33 RAP: 5.00 mmHg RVSP: 31.09 mmHg FINDINGS -------- Sinus rhythm. This was a technically adequate study. The left ventricular size is normal. There is mild concentric left ventricular hypertrophy. Overa ll left ventricular systolic function is low-normal with, an EF between 50 - 55 %. The right ventricle is normal in size. LA is severely dilated >40 ml/m2 The right atrial size is normal. There is mild aortic valve sclerosis. Trace to mild aortic regurgitation. Mild mitral annular calcification present. Mild mitral regurgitation is present. Mild tricuspid regurgitation present. There is no evidence of pulmonary hypertension. The right v entricular systolic pressure, as measured by Doppler, is 31.09mmHg. Trace/mild (physiologic) pulmonic regurgitation. The aortic root size is normal. There is no pericardial effusion. CONCLUSIONS -------- 1. The left ventricular size is normal. 2. There is mild concentric left ventricular hypertrophy. 3. Overall left ventricular systolic function is low-normal with, an EF between 50 - 55 %. 4. LA is severely dilated >40 ml/m2 5. There is mild aortic valve sclerosis. 6. Trace to mild aortic regurgitation. 7. Mild mitral annular calcification present. 8. Mild mitral regurgitation is present. 9. Mild tricuspid regurgitation present. 10. There is no evidence of pulmonary hypertension. 11. The right ventricular systolic pressure, as measured by Doppler, is 31.09mmHg. 12. Trace/mild (physiologic) pulmonic regurgitation. 13. The aortic root size is normal. 14. There is no pericardial effusion. FOLDER GLUER OPERATOR: Michela Thompson RDCS
[2017-07-16] MEDS: ENOXAPARIN 30 MG/0.3 ML SYRINGE SQ SCH ×2 (11:40→20:36)
[2017-07-16] MEDS: ASPIRIN 325 MG TAB PO SCH (11:40)
[2017-07-16] MEDS: MULTIVITAMINS, THERA 1 EACH TAB PO SCH (11:41)
[2017-07-16] MEDS: THIAMINE 100 MG TAB PO SCH (11:41)
[2017-07-16] MEDS: FOLIC ACID 1 MG TAB PO SCH (11:41)
[2017-07-16 11:44] LABS: Glucose,Whole Blood 77 mg/dL (75-99)
[2017-07-16 14:17] LABS: Hemoglobin A1C 5.2 % (4.0-6.0)
[2017-07-16 16:30] LABS: Glucose,Whole Blood 85 mg/dL (75-99)
[2017-07-16] MEDS: cefTRIAXone IN SWFI 2,000 MG/20 ML SYRINGE IVP SCH (16:36)
--- NOTE | 2017-07-16 20:19 | PN ---
PROGRESS NOTE DATE OF SERVICE: 07/16/2017 REASON FOR FOLLOWUP: 1. Right hip unstageable pressure ulcer with cellulitis. 2. UTI. INTERVAL HISTORY: The patient is afebrile. She is breathing comfortably. Slightly lethargic. Did not have any complaints when asked specifically. No nausea, vomiting or any diarrhea noted by the nursing staff. PHYSICAL EXAMINATION: Blood pressure 145/65 with a pulse of 64, temperature 98. She is 99% on room air. General description is an elderly female lying in bed in no distress. RESPIRATORY SYSTEM: Unlabored breathing. Clear to auscultation anteriorly. HEART: S1, S2. Regular rate and rhythm. ABDOMEN: Soft. No tenderness. Right hip is currently dressed up. No obvious drainage on the dressing. LABS: BUN of 23, creatinine 0.62. CBC was not done today. Wound culture currently pending. Urine culture is pending. Blood culture so far negative. DIAGNOSTIC IMPRESSION AND PLAN: 1. Patient admitted to hospital with a pressure ulcer on the right hip area, unstageable, with a significant amount of slough tissue and a necrotic area ; may benefit from surgical debridement. Local wound care to continue with the Santyl followed by moist dressing. Antibiotic to continue in the form of vancomycin while waiting for the cultures to finalize. 2. Patient with a urinary tract infection. Waiting for the urine culture to finalize. Keep the patient on Rocephin at this point. Continue with supportive care. MMODL / ASHN: [id number] / MTDD
[2017-07-16] MEDS: LACTATED RINGERS 1,000 ML IV SCH (20:35)
[2017-07-16] MEDS: COLLAGENASE 250 UNIT/GM OINTMENT 30 GM TUBE TOPICAL SCH (20:37)
[2017-07-16 20:57] LABS: Glucose,Whole Blood 165 mg/dL (75-99)
[2017-07-17] MEDS ORDERED: VANCOMYCIN 1,000 MG in SODIUM CHLORIDE 0.9% 250 ML IVPB SCH ×2
[2017-07-17] MEDS: LACTATED RINGERS 1,000 ML IV SCH ×2 (05:28→20:41)
[2017-07-17 06:02] LABS: Glucose,Whole Blood 83 mg/dL (75-99)
[2017-07-17 06:49] LABS: Anion Gap 6 mmol/L; Blood Urea Nitrogen 17 mg/dL (7-17); Calcium 9.3 mg/dL (8.4-10.2); Carbon Dioxide 26 mmol/L (22-30); Chloride 104 mmol/L (98-107); Creatine Kinase 1122 U/L (30-135); Glucose 85 mg/dL (74-99); Sodium 136 mmol/L (137-145)
[2017-07-17] MEDS: LEVOTHYROXINE 112 MCG TAB PO SCH (08:58)
[2017-07-17] MEDS: ASPIRIN 325 MG TAB PO SCH (08:58)
[2017-07-17] MEDS: ENOXAPARIN 30 MG/0.3 ML SYRINGE SQ SCH ×2 (08:59→20:40)
[2017-07-17] MEDS: PANTOPRAZOLE 40 MG TABLET PO SCH (11:17)
[2017-07-17 11:47] LABS: Amorphous Sediment,Urine Occasional /hpf; Appearance,Urine Cloudy (Clear); Bacteria,Urine Few /hpf; Bilirubin,Urine Negative (Negative); Blood,Urine Moderate (Negative); Color,Urine Yellow; Glucose,Urine (UA) 1+ (Negative); Hyaline Casts,Urine 2 /lpf (0-2); Ketones,Urine Negative (Negative); Leukocyte Esterase,Urine Large (Negative); Mucus,Urine Occasional /hpf; Nitrite,Urine Negative (Negative); PH, Urine 6.5 (5.0-8.0); Protein,Urine Trace (Negative); RBC,Urine 26 /hpf (0-5); Specific Gravity,Urine 1.014 (1.001-1.035); Urobilinogen,Urine <2.0 mg/dL (<2.0); WBC,Urine 51 /hpf (0-5)
[2017-07-17 12:02] LABS: Glucose,Whole Blood 145 mg/dL (75-99)
[2017-07-17] MEDS: THIAMINE 100 MG TAB PO SCH (12:40)
[2017-07-17] MEDS: MULTIVITAMINS, THERA 1 EACH TAB PO SCH (12:40)
[2017-07-17] MEDS: FOLIC ACID 1 MG TAB PO SCH (12:40)
--- NOTE | 2017-07-17 15:03 | P.PN ---
Subjective Progress Note Date: 07/17/17 Principal diagnosis: Rhabdomyolysis This is a 76-year-old female who was initially brought into the hospital because she was found on the floor in her apartment. Cardiology consultation was requested to see the patient because of abnormality and cardiac enzymes. Patient's abnormality consistent with rhabdomyolysis. CK has been improving on a daily basis. The CK today is 2200. An echocardiogram with Doppler study has been performed but is yet pending. Blood pressure 120/60 with a heart rate in the 50s, 96% on room air. Sodium 138, potassium 4.1, BUN 23, creatinine 0.6. TSH level is 5.4. Patient continues to be on IV hydration. 07/17/2017 Patient was seen and examined this morning, overall doing better. CK down to 1122. Echocardiogram with Doppler study was reviewed which revealed a normal left ventricular systolic function. Hemodynamically stable. Objective - Vital Signs Vital signs: Vital Signs Temp 98.4 F 07/17/17 11:14 Pulse 65 07/17/17 11:14 Resp 18 07/17/17 11:14 BP 131/60 07/17/17 11:14 Pulse Ox 97 07/17/17 11:14 Intake & Output 07/16/17 07/17/17 07/17/17 18:59 06:59 18:59 Intake Total 1450 1680 Output Total 550 1100 726 Balance 900 -1100 954 Weight 52 kg 54 kg Intake: Intake, IV Titration 850 600 Amount Lactated Ringers 1,000 ml 600 600 @ 75 mls/hr IV .[id number] [facility] Rx#:[id number] Vancomycin 1,000 mg In 250 Sodium Chloride 0.9% 250 ml @ 125 mls/hr IVPB Q16H [facility] Rx#:[id number] Oral 600 1080 Output: Urine 550 1100 725 Stool 1 Other: Voiding Method Indwelling Catheter Indwelling Catheter Indwelling Catheter - Exam PHYSICAL EXAMINATION: HEENT: Head is atraumatic, normocephalic. Pupils equal, round. Neck is supple. There is no elevated jugular venous pressure. HEART EXAMINATION: Heart S1, S2 normal. No murmur or gallop heard. CHEST EXAMINATION: Lungs are clear to auscultation and precussion. No chest wall tenderness is noted on palpation or with deep breathing. ABDOMEN: Soft, nontender. Bowel sounds are heard. No organomegaly noted. EXTREMITIES: 2+ peripheral pulses with no evidence of peripheral edema and no calf tenderness noted. NEUROLOGIC patient is awake, confused. - Labs CBC & Chem 7: 07/14/17 14:20 07/17/17 06:16 Labs: Abnormal Lab Results - Last 24 Hours (Table) 07/16/17 07/17/17 07/17/17 Range/Units 20:55 06:16 11:30 Sodium 136 L (137-145) mmol/L POC Glucose (mg/dL) 165 H (75-99) mg/dL Creatine Kinase 1122 H (30-135) U/L Urine Appearance (Clear) Urine Protein (Negative) Urine Glucose (UA) (Negative) Urine Blood (Negative) Ur Leukocyte Esterase (Negative) Urine RBC (0-5) /hpf Urine WBC (0-5) /hpf Amorphous Sediment (None) /hpf Urine Bacteria (None) /hpf Urine Mucus (None) /hpf U Random Total Protein 23 H (<12) mg/dL 07/17/17 07/17/17 Range/Units 11:30 11:43 Sodium (137-145) mmol/L POC Glucose (mg/dL) 145 H (75-99) mg/dL Creatine Kinase (30-135) U/L Urine Appearance Cloudy H (Clear) Urine Protein Trace H (Negative) Urine Glucose (UA) 1+ H (Negative) Urine Blood Moderate H (Negative) Ur Leukocyte Esterase Large H (Negative) Urine RBC 26 H (0-5) /hpf Urine WBC 51 H (0-5) /hpf Amorphous Sediment Occasional H (None) /hpf Urine Bacteria Few H (None) /hpf Urine Mucus Occasional H (None) /hpf U Random Total Protein (<12) mg/dL Microbiology - Last 24 Hours (Table) 07/14/17 14:20 Blood Culture - Preliminary Blood No Growth after 48 hours Assessment and Plan Plan: Assessment and plan #1 rhabdomyolysis, CK continues to improve, patient continues to be on IV hydration. #2 dehydration secondary to decreased fluid intake. #3 acute on chronic renal failure which is improving. #4 mental status change with underlying dementia. Plan From cardiology's perspective, we'll continue current therapy. Echocardiogram with Doppler study revealed normal left ventricular systolic function. From cardiology's perspective, we'll follow this patient along with you now on an as- needed basis only, please don't hesitate to call if you have any questions. DNP note has been reviewed, I agree with a documented findings and plan of care. Patient was seen and examined.
[2017-07-17 16:50] LABS: Glucose,Whole Blood 113 mg/dL (75-99)
[2017-07-17] MEDS: COLLAGENASE 250 UNIT/GM OINTMENT 30 GM TUBE TOPICAL SCH (16:58)
[2017-07-17] MEDS: cefTRIAXone IN SWFI 2,000 MG/20 ML SYRINGE IVP SCH (16:58)
[2017-07-17] MEDS ORDERED: VANCOMYCIN TROUGH DUE 1 EACH MISC MISCELLANE ONE (20:00)
--- NOTE | 2017-07-17 21:05 | PN ---
PROGRESS NOTE DATE OF SERVICE: 07/17/2017 REASON FOR FOLLOWUP: 1. Right hip unstageable pressure ulcer. 2. UTI. INTERVAL HISTORY: The patient is afebrile. She seems to be more awake and alert today, breathing comfortably. Denies having any chest pain, shortness of breath or cough. No abdominal pain or any worsening pain in the right hip area. PHYSICAL EXAMINATION: Blood pressure is 107/54 with a pulse of 68, temperature 99.7. She is 96% on room air. General description is an elderly female lying in bed in no distress. RESPIRATORY SYSTEM: Unlabored breathing. Clear to auscultation anteriorly. HEART: S1, S2. Regular rate and rhythm. Right hip wound is currently dressed up. Minimal drainage on the dressing. LABS: Blood cultures are so far negative. Urine culture and the right hip wound culture are currently pending. DIAGNOSTIC IMPRESSION AND PLAN: 1. Patient with a right hip unstageable pressure ulcer with significant slough tissue. Local wound care with Santyl. Surgical consultation will be requested for surgical debridement. Current on vancomycin, waiting for the cultures to finalize. 2. Patient with urinary tract infection. Urine culture currently pending. On Rocephin. That will be continued. Continue supportive care. MMODL / IJN: [id number] / MTDD
[2017-07-17] MEDS: VANCOMYCIN 1,000 MG in SODIUM CHLORIDE 0.9% 250 ML IVPB SCH (21:13)
--- NOTE | 2017-07-17 23:56 | P.PN ---
Subjective Progress Note Date: 07/16/17 Principal diagnosis: Rhabdomyolysis Patient is a 76-year-old female with a known history of hypertension, hypothyroidism and dementia who was brought by her family to the emergency room because she was found on the floor in her apartment. Patient was found have acute kidney injury, rhabdomyolysis and slightly elevated troponin level along with possible UTI. 07/15/2017 Patient is a poor historian and most of the history was taken from the medical records and nursing staff. Currently patient is on one-to-one feeding and is tolerating oral diet slowly. Currently patient is on Ringer lactate. 2-D echocardiogram was ordered. Cardiology and nephrology is following. CPK level is still elevated. Otherwise no fever no chills. TSH level was ordered 07/16/2017 Patient is awake and more oriented today. Able to tolerate oral diet with one on-1 feeding. Awaiting final culture reports on the right hip wound and urine final culture reports. 2-D echocardiogram was done showed normal ejection fraction. Otherwise CPK level is improving. No other acute overnight issues. Free T4 level within normal limits. Patient does have slightly elevated TSH level. Review of systems could not be apparent from the patient Active Medications Generic Name Dose Route Start Last Admin Trade Name Freq PRN Reason Stop Dose Admin Acetaminophen 650 mg 07/14/17 16:43 Tylenol Tab PO Q6HR PRN Mild Pain or Fever > 100.5 Hydrocodone Bitart/Acetaminophen 1 each 07/14/17 19:28 07/15/17 20:35 [place] 5-325 PO 1 each Q6HR PRN Administration Moderate Pain Aspirin 325 mg 07/16/17 09:00 Aspirin PO DAILY [facility] Ceftriaxone Sodium 2,000 mg 07/15/17 16:00 07/15/17 17:07 Rocephin IVP 2,000 mg Q24H [facility] Administration Collagenase 1 applic 07/15/17 20:00 07/15/17 17:08 Santyl TOPICAL Not Given HS@2000 [facility] Enoxaparin Sodium 30 mg 07/15/17 09:00 07/15/17 20:35 Lovenox SQ 30 mg Q12HR [facility] Administration Folic Acid 1 mg 07/15/17 12:00 07/15/17 08:26 Folic Acid PO 1 mg DAILY@1200 [facility] Administration Vancomycin HCl 1,000 mg/ 250 mls @ 125 mls/hr 07/15/17 09:00 07/15/17 08:25 Sodium Chloride IVPB 125 mls/hr DAILY [facility] Administration Lactated Ringer's 1,000 mls @ 75 mls/hr 07/15/17 09:00 07/15/17 17:07 Lactated Ringers IV 75 mls/hr .[id number] [facility] Administration Levothyroxine Sodium 112 mcg 07/15/17 06:30 07/15/17 06:40 Synthroid PO 112 mcg DAILY@0630 [facility] Administration Multivitamins 1 each 07/15/17 12:00 07/15/17 08:26 Theragran PO 1 each DAILY@1200 [facility] Administration Naloxone HCl 0.2 mg 07/14/17 16:43 Narcan IV Q2M PRN Opioid Reversal Pantoprazole Sodium 40 mg 07/15/17 07:30 07/15/17 06:40 Protonix PO 40 mg [id number] [facility] Administration Thiamine HCl 100 mg 07/15/17 12:00 07/15/17 08:26 Vitamin B-1 PO 100 mg DAILY@1200 [facility] Administration Objective - Vital Signs Vital signs: Vital Signs Temp 97.3 F L 07/16/17 20:00 Pulse 67 07/16/17 20:00 Resp 20 07/16/17 20:00 BP 134/63 07/16/17 20:00 Pulse Ox 98 07/16/17 20:00 Intake & Output 07/16/17 07/16/17 07/17/17 06:59 18:59 06:59 Intake Total 600 1450 Output Total 400 550 Balance 200 900 Weight 52 kg 52 kg Intake: Intake, IV Titration 600 850 Amount Lactated Ringers 1,000 ml 600 600 @ 75 mls/hr IV .[id number] [facility] Rx#:[id number] Vancomycin 1,000 mg In 250 Sodium Chloride 0.9% 250 ml @ 125 mls/hr IVPB Q16H [facility] Rx#:[id number] Oral 600 Output: Urine 400 550 Uretheral ([place]) 400 Other: Voiding Method Indwelling Catheter Indwelling Catheter - Exam PHYSICAL EXAMINATION: Patient is lying in the bed comfortably, no acute distress, awake alert but not oriented. Patient is able to give answers slowly. HEENT: Normocephalic. Neck is supple. Pupils reactive. Nostrils clear. Oral cavity is moist. Ears reveal no drainage. Neck reveals no JVD, carotid bruits, or thyromegaly. CHEST EXAMINATION: Trachea is central. Symmetrical expansion. Lung rubalcava clear to auscultation and percussion. CARDIAC: Normal S1, S2 with no gallops. No murmurs ABDOMEN: Soft. Bowel sounds normal. No organomegaly. No abdominal bruits. Extremities: reveal no edema. No clubbing or cyanosis. Right hip wound/ulcer Neurologically awake, alert,. Able to move all extremities . No focal deficits noted Skin: No rash or skin lesions except above. Psychiatric: Cooperative. Could not assess completely Musculoskeletal: No joint swelling or deformity. Normal range of motion. - Labs CBC & Chem 7: 07/14/17 14:20 07/17/17 06:16 Labs: Abnormal Lab Results - Last 24 Hours (Table) 07/15/17 07/16/17 Range/Units 21:07 05:36 Chloride 109 H (98-107) mmol/L BUN 23 H (7-17) mg/dL POC Glucose (mg/dL) 130 H (75-99) mg/dL Creatine Kinase 2200 H (30-135) U/L TSH 5.410 H (0.465-4.680) mIU/L Microbiology - Last 24 Hours (Table) 07/14/17 14:20 Blood Culture - Preliminary Blood No Growth after 48 hours Assessment and Plan Assessment: Acute rhabdomyolysis status post fall and was on the floor/immobility Acute kidney injury possible ATN. Improved Dehydration Elevated troponin level likely due to BEATRIS and rhabdomyolysis Dementia urinary tract infection sepsis. Follow-up urine culture report Right hip decubitus ulcer wound with infection Hypertension Hypothyroidism Plan: Patient be continued on IV hydration with Ringers lactate. Continue with antibiotics in the form of vancomycin and ceftriaxone and follow-up renal function. Urine culture report is pending. Cardiology and nephrology is following. Further recommendations based on the clinical course. Prognosis is guarded with multiple medical problems and comorbid conditions. Patient does have poor functional status. Continue with 1:1 oral feeding. Time with Patient: Greater than 30
--- NOTE | 2017-07-17 23:56 | P.PN ---
Subjective Progress Note Date: 07/17/17 Principal diagnosis: Rhabdomyolysis Patient is a 76-year-old female with a known history of hypertension, hypothyroidism and dementia who was brought by her family to the emergency room because she was found on the floor in her apartment. Patient was found have acute kidney injury, rhabdomyolysis and slightly elevated troponin level along with possible UTI. 07/15/2017 Patient is a poor historian and most of the history was taken from the medical records and nursing staff. Currently patient is on one-to-one feeding and is tolerating oral diet slowly. Currently patient is on Ringer lactate. 2-D echocardiogram was ordered. Cardiology and nephrology is following. CPK level is still elevated. Otherwise no fever no chills. TSH level was ordered 07/16/2017 Patient is awake and more oriented today. Able to tolerate oral diet with one on-1 feeding. Awaiting final culture reports on the right hip wound and urine final culture reports. 2-D echocardiogram was done showed normal ejection fraction. Otherwise CPK level is improving. No other acute overnight issues. Free T4 level within normal limits. Patient does have slightly elevated TSH level. 07/17/2017 Patient is more oriented today. Able to communicate slowly. Otherwise patient does have underlying dementia. Awaiting final urine culture and wound culture reports. CPK level continues to improve. Otherwise no fever no chills. Review of systems could not be apparent from the patient Active Medications Generic Name Dose Route Start Last Admin Trade Name Freq PRN Reason Stop Dose Admin Acetaminophen 650 mg 07/14/17 16:43 Tylenol Tab PO Q6HR PRN Mild Pain or Fever > 100.5 Hydrocodone Bitart/Acetaminophen 1 each 07/14/17 19:28 07/15/17 20:35 [place] 5-325 PO 1 each Q6HR PRN Administration Moderate Pain Aspirin 325 mg 07/16/17 09:00 Aspirin PO DAILY [facility] Ceftriaxone Sodium 2,000 mg 07/15/17 16:00 07/15/17 17:07 Rocephin IVP 2,000 mg Q24H [facility] Administration Collagenase 1 applic 07/15/17 20:00 07/15/17 17:08 Santyl TOPICAL Not Given HS@2000 [facility] Enoxaparin Sodium 30 mg 07/15/17 09:00 07/15/17 20:35 Lovenox SQ 30 mg Q12HR [facility] Administration Folic Acid 1 mg 07/15/17 12:00 07/15/17 08:26 Folic Acid PO 1 mg DAILY@1200 [facility] Administration Vancomycin HCl 1,000 mg/ 250 mls @ 125 mls/hr 07/15/17 09:00 07/15/17 08:25 Sodium Chloride IVPB 125 mls/hr DAILY [facility] Administration Lactated Ringer's 1,000 mls @ 75 mls/hr 07/15/17 09:00 07/15/17 17:07 Lactated Ringers IV 75 mls/hr .[id number] [facility] Administration Levothyroxine Sodium 112 mcg 07/15/17 06:30 07/15/17 06:40 Synthroid PO 112 mcg DAILY@0630 [facility] Administration Multivitamins 1 each 07/15/17 12:00 07/15/17 08:26 Theragran PO 1 each DAILY@1200 [facility] Administration Naloxone HCl 0.2 mg 07/14/17 16:43 Narcan IV Q2M PRN Opioid Reversal Pantoprazole Sodium 40 mg 07/15/17 07:30 07/15/17 06:40 Protonix PO 40 mg [id number] [facility] Administration Thiamine HCl 100 mg 07/15/17 12:00 07/15/17 08:26 Vitamin B-1 PO 100 mg DAILY@1200 [facility] Administration Objective - Vital Signs Vital signs: Vital Signs Temp 99.7 F H 07/17/17 16:00 Pulse 68 07/17/17 16:00 Resp 18 07/17/17 16:00 BP 107/54 07/17/17 16:00 Pulse Ox 96 07/17/17 16:00 Intake & Output 07/17/17 07/17/17 07/18/17 06:59 18:59 06:59 Intake Total 2160 Output Total 1100 727 Balance -1100 1433 Weight 54 kg Intake: Intake, IV Titration 600 Amount Lactated Ringers 1,000 ml 600 @ 75 mls/hr IV .[id number] [facility] Rx#:[id number] Oral 1560 Output: Urine 1100 725 Stool 2 Other: Voiding Method Indwelling Catheter Indwelling Catheter - Exam PHYSICAL EXAMINATION: Patient is lying in the bed comfortably, no acute distress, awake alert but not oriented. Patient is able to give answers slowly. HEENT: Normocephalic. Neck is supple. Pupils reactive. Nostrils clear. Oral cavity is moist. Ears reveal no drainage. Neck reveals no JVD, carotid bruits, or thyromegaly. CHEST EXAMINATION: Trachea is central. Symmetrical expansion. Lung rubalcava clear to auscultation and percussion. CARDIAC: Normal S1, S2 with no gallops. No murmurs ABDOMEN: Soft. Bowel sounds normal. No organomegaly. No abdominal bruits. Extremities: reveal no edema. No clubbing or cyanosis. Right hip wound/ulcer Neurologically awake, alert,. Able to move all extremities . No focal deficits noted Skin: No rash or skin lesions except above. Psychiatric: Cooperative. Could not assess completely Musculoskeletal: No joint swelling or deformity. Normal range of motion. - Labs CBC & Chem 7: 07/14/17 14:20 07/17/17 06:16 Labs: Abnormal Lab Results - Last 24 Hours (Table) 07/17/17 07/17/17 07/17/17 Range/Units 06:16 11:30 11:30 Sodium 136 L (137-145) mmol/L POC Glucose (mg/dL) (75-99) mg/dL Creatine Kinase 1122 H (30-135) U/L Urine Appearance Cloudy H (Clear) Urine Protein Trace H (Negative) Urine Glucose (UA) 1+ H (Negative) Urine Blood Moderate H (Negative) Ur Leukocyte Esterase Large H (Negative) Urine RBC 26 H (0-5) /hpf Urine WBC 51 H (0-5) /hpf Amorphous Sediment Occasional H (None) /hpf Urine Bacteria Few H (None) /hpf Urine Mucus Occasional H (None) /hpf U Random Total Protein 23 H (<12) mg/dL 07/17/17 07/17/17 Range/Units 11:43 16:43 Sodium (137-145) mmol/L POC Glucose (mg/dL) 145 H 113 H (75-99) mg/dL Creatine Kinase (30-135) U/L Urine Appearance (Clear) Urine Protein (Negative) Urine Glucose (UA) (Negative) Urine Blood (Negative) Ur Leukocyte Esterase (Negative) Urine RBC (0-5) /hpf Urine WBC (0-5) /hpf Amorphous Sediment (None) /hpf Urine Bacteria (None) /hpf Urine Mucus (None) /hpf U Random Total Protein (<12) mg/dL Microbiology - Last 24 Hours (Table) 07/14/17 14:15 Gram Stain - Final Hip - Right Wound Culture - Final 07/14/17 14:20 Blood Culture - Preliminary Blood No Growth after 72 hours Assessment and Plan Assessment: Acute rhabdomyolysis status post fall and was on the floor/immobility Acute kidney injury possible ATN. Improved Dehydration Elevated troponin level likely due to BEATRIS and rhabdomyolysis Dementia urinary tract infection sepsis. Follow-up urine culture report Right hip decubitus ulcer wound with infection Hypertension Hypothyroidism Plan: Patient be continued on IV hydration with Ringers lactate. Continue with antibiotics in the form of vancomycin and ceftriaxone and follow-up renal function. Urine culture report is pending. Cardiology and nephrology is following. Further recommendations based on the clinical course. Prognosis is guarded with multiple medical problems and comorbid conditions. Patient does have poor functional status. Continue with 1:1 oral feeding. Time with Patient: Greater than 30
[2017-07-18] MEDS: LACTATED RINGERS 1,000 ML IV SCH ×2 (05:49→18:45)
[2017-07-18 06:04] LABS: Glucose,Whole Blood 129 mg/dL (75-99)
[2017-07-18 06:31] LABS: Anion Gap 4 mmol/L; Blood Urea Nitrogen 20 mg/dL (7-17); Calcium 9.4 mg/dL (8.4-10.2); Carbon Dioxide 30 mmol/L (22-30); Chloride 102 mmol/L (98-107); Creatine Kinase 964 U/L (30-135); Glucose 85 mg/dL (74-99); Potassium 4.1 mmol/L (3.5-5.1); Sodium 136 mmol/L (137-145)
[2017-07-18] MEDS: PANTOPRAZOLE 40 MG TABLET PO SCH (06:48)
[2017-07-18] MEDS: LEVOTHYROXINE 112 MCG TAB PO SCH (06:48)
[2017-07-18] MEDS: ACETAMINOPHEN TAB 325 MG TAB PO PRN (06:53)
[2017-07-18] MEDS: ENOXAPARIN 30 MG/0.3 ML SYRINGE SQ SCH ×2 (10:03→20:41)
[2017-07-18] MEDS: ASPIRIN 325 MG TAB PO SCH (10:03)
[2017-07-18] MEDS: FOLIC ACID 1 MG TAB PO SCH (11:31)
[2017-07-18] MEDS: MULTIVITAMINS, THERA 1 EACH TAB PO SCH (11:31)
[2017-07-18] MEDS: THIAMINE 100 MG TAB PO SCH (11:31)
[2017-07-18 12:04] LABS: Glucose,Whole Blood 200 mg/dL (75-99)
--- NOTE | 2017-07-18 14:54 | PN ---
PROGRESS NOTE DATE OF SERVICE: 07/18/2017 REASON FOR FOLLOWUP: 1. Right hip unstageable pressure ulcer. 2. UTI. INTERVAL HISTORY: The patient is afebrile. She is up in the chair, more awake and alert. Denies having any chest pain, shortness of breath, cough. No abdominal pain, no nausea, or any diarrhea. PHYSICAL EXAMINATION: Blood pressure 124/50, pulse of 64, temperature 98, she is 98% on room air. General description is an elderly female up in the chair in no distress. RESPIRATORY SYSTEM: Unlabored breathing, clear to auscultation anteriorly. HEART: S1, S2. Regular rate and rhythm. ABDOMEN: Soft, no tenderness. Right hip wound still has significant amount of plaque/eschar, swelling and redness has improved, though. EXTREMITIES: No edema of the feet. LABS: BUN of 20, creatinine 0.70. Wound culture so far pending. DIAGNOSTIC IMPRESSION AND PLAN: 1. Patient with right hip pressure ulcer, unstageable with view of significant necrotic tissue, did not have significant improvement with Santyl. Recommend getting General Surgery on the case for surgical debridement and possible deep culture. Keep the patient on vanco. 2. Patient with a urinary tract infection, currently covered with Rocephin that will continue while waiting for urine culture to finalized. Continue supportive care. MMODL / IJN: [id number] /
[2017-07-18] MEDS: VANCOMYCIN 1,000 MG in SODIUM CHLORIDE 0.9% 250 ML IVPB SCH (15:33)
[2017-07-18 16:50] LABS: Glucose,Whole Blood 115 mg/dL (75-99)
[2017-07-18] MEDS: cefTRIAXone IN SWFI 2,000 MG/20 ML SYRINGE IVP SCH (18:45)
[2017-07-18] MEDS: COLLAGENASE 250 UNIT/GM OINTMENT 30 GM TUBE TOPICAL SCH (20:41)
[2017-07-18 21:08] LABS: Glucose,Whole Blood 112 mg/dL (75-99)
--- NOTE | 2017-07-19 00:18 | P.PN ---
Subjective Progress Note Date: 07/18/17 Principal diagnosis: Rhabdomyolysis Patient is a 76-year-old female with a known history of hypertension, hypothyroidism and dementia who was brought by her family to the emergency room because she was found on the floor in her apartment. Patient was found have acute kidney injury, rhabdomyolysis and slightly elevated troponin level along with possible UTI. 07/15/2017 Patient is a poor historian and most of the history was taken from the medical records and nursing staff. Currently patient is on one-to-one feeding and is tolerating oral diet slowly. Currently patient is on Ringer lactate. 2-D echocardiogram was ordered. Cardiology and nephrology is following. CPK level is still elevated. Otherwise no fever no chills. TSH level was ordered 07/16/2017 Patient is awake and more oriented today. Able to tolerate oral diet with one on-1 feeding. Awaiting final culture reports on the right hip wound and urine final culture reports. 2-D echocardiogram was done showed normal ejection fraction. Otherwise CPK level is improving. No other acute overnight issues. Free T4 level within normal limits. Patient does have slightly elevated TSH level. 07/17/2017 Patient is more oriented today. Able to communicate slowly. Otherwise patient does have underlying dementia. Awaiting final urine culture and wound culture reports. CPK level continues to improve. Otherwise no fever no chills. 07/18/2017 Patient is able to sit in the chair today. No commerce of chest pain or shortness of breath. Patient is still having right hip decub ulcer with necrotic tissue. Gen. surgery was consulted for possible debridement and deep wound cultures. Otherwise patient is being converted on vancomycin at this time. Appreciate ID recommendations. No nausea vomiting or abdominal pain. Patient is clinically improving. Part is participating in physical therapy slowly. Patient is able to eat bypass of today. Review of systems could not be apparent from the patient due to underlying dementia Active Medications Generic Name Dose Route Start Last Admin Trade Name Freq PRN Reason Stop Dose Admin Acetaminophen 650 mg 07/14/17 16:43 Tylenol Tab PO Q6HR PRN Mild Pain or Fever > 100.5 Hydrocodone Bitart/Acetaminophen 1 each 07/14/17 19:28 07/15/17 20:35 Kane 5-325 PO 1 each Q6HR PRN Administration Moderate Pain Aspirin 325 mg 07/16/17 09:00 Aspirin PO DAILY [facility] Ceftriaxone Sodium 2,000 mg 07/15/17 16:00 07/15/17 17:07 Rocephin IVP 2,000 mg Q24H [facility] Administration Collagenase 1 applic 07/15/17 20:00 07/15/17 17:08 Santyl TOPICAL Not Given HS@1999 [facility] Enoxaparin Sodium 30 mg 07/15/17 09:00 07/15/17 20:35 Lovenox SQ 30 mg Q12HR [facility] Administration Folic Acid 1 mg 07/15/17 12:00 07/15/17 08:26 Folic Acid PO 1 mg DAILY@1200 [facility] Administration Vancomycin HCl 1,000 mg/ 250 mls @ 125 mls/hr 07/15/17 09:00 07/15/17 08:25 Sodium Chloride IVPB 125 mls/hr DAILY [facility] Administration Lactated Ringer's 1,000 mls @ 75 mls/hr 07/15/17 09:00 07/15/17 17:07 Lactated Ringers IV 75 mls/hr .[id number] [facility] Administration Levothyroxine Sodium 112 mcg 07/15/17 06:30 07/15/17 06:40 Synthroid PO 112 mcg DAILY@0630 [facility] Administration Multivitamins 1 each 07/15/17 12:00 07/15/17 08:26 Theragran PO 1 each DAILY@1200 [facility] Administration Naloxone HCl 0.2 mg 07/14/17 16:43 Narcan IV Q2M PRN Opioid Reversal Pantoprazole Sodium 40 mg 07/15/17 07:30 07/15/17 06:40 Protonix PO 40 mg [id number] [facility] Administration Thiamine HCl 100 mg 07/15/17 12:00 07/15/17 08:26 Vitamin B-1 PO 100 mg DAILY@1200 [facility] Administration Objective - Vital Signs Vital signs: Vital Signs Temp 98 F 07/18/17 20:00 Pulse 70 07/18/17 20:00 Resp 15 07/18/17 20:00 BP 135/63 07/18/17 20:00 Pulse Ox 92 L 07/18/17 20:00 Intake & Output 07/18/17 07/18/17 07/19/17 06:59 18:59 06:59 Intake Total 450 518 Output Total 1703 3 Balance -1253 515 Weight 58 kg Intake: Intake, IV Titration 450 Amount Lactated Ringers 1,000 ml 450 @ 75 mls/hr IV .[id number] [facility] Rx#:[id number] Oral 518 Output: Urine 1700 Stool 3 3 Other: Voiding Method Indwelling Catheter Indwelling Catheter # Bowel Movements 2 - Exam PHYSICAL EXAMINATION: Patient is lying in the bed comfortably, no acute distress, awake alert but not oriented. Patient is able to give answers slowly. HEENT: Normocephalic. Neck is supple. Pupils reactive. Nostrils clear. Oral cavity is moist. Ears reveal no drainage. Neck reveals no JVD, carotid bruits, or thyromegaly. CHEST EXAMINATION: Trachea is central. Symmetrical expansion. Lung rubalcava clear to auscultation and percussion. CARDIAC: Normal S1, S2 with no gallops. No murmurs ABDOMEN: Soft. Bowel sounds normal. No organomegaly. No abdominal bruits. Extremities: reveal no edema. No clubbing or cyanosis. Right hip wound/ulcer Neurologically awake, alert,. Able to move all extremities . No focal deficits noted Skin: No rash or skin lesions except above. Psychiatric: Cooperative. Could not assess completely Musculoskeletal: No joint swelling or deformity. Normal range of motion. - Labs CBC & Chem 7: 07/14/17 14:20 07/18/17 05:49 Labs: Abnormal Lab Results - Last 24 Hours (Table) 07/18/17 07/18/17 07/18/17 Range/Units 05:49 06:01 11:41 Sodium 136 L (137-145) mmol/L BUN 20 H (7-17) mg/dL POC Glucose (mg/dL) 129 H 200 H (75-99) mg/dL Creatine Kinase 964 H (30-135) U/L 07/18/17 07/18/17 Range/Units 16:30 21:04 Sodium (137-145) mmol/L BUN (7-17) mg/dL POC Glucose (mg/dL) 115 H 112 H (75-99) mg/dL Creatine Kinase (30-135) U/L Microbiology - Last 24 Hours (Table) 07/14/17 14:20 Blood Culture - Preliminary Blood No Growth after 96 hours 07/14/17 14:15 Gram Stain - Final Hip - Right Wound Culture - Final Assessment and Plan Assessment: Acute rhabdomyolysis status post fall and was on the floor/immobility. CPK level is improved Acute kidney injury possible ATN. Improved Dehydration Elevated troponin level likely due to BEATRIS and rhabdomyolysis Dementia urinary tract infection sepsis. Follow-up urine culture report Right hip decubitus ulcer wound with infection/thickened tissue Hypertension Hypothyroidism Plan: Patient be continued on IV hydration with Ringers lactate. Continue with antibiotics in the form of vancomycin and ceftriaxone and follow-up renal function. Ceftriaxone has been discontinued. Urine culture showed enterococcus species possibly nonsignificant. Cardiology and nephrology is following. Further recommendations based on the clinical course. Prognosis is guarded with multiple medical problems and comorbid conditions. Patient does have poor functional status. Time with Patient: Greater than 30
[2017-07-19] MEDS: LACTATED RINGERS 1,000 ML IV SCH ×2 (04:21→23:59)
[2017-07-19] MEDS: VANCOMYCIN 1,000 MG in SODIUM CHLORIDE 0.9% 250 ML IVPB SCH (04:21)
[2017-07-19] MEDS: ACETAMINOPHEN TAB 325 MG TAB PO PRN ×2 (04:22→10:55)
[2017-07-19 06:00] LABS: Glucose,Whole Blood 86 mg/dL (75-99)
[2017-07-19] MEDS: LEVOTHYROXINE 112 MCG TAB PO SCH (06:16)
[2017-07-19] MEDS: PANTOPRAZOLE 40 MG TABLET PO SCH (06:16)
[2017-07-19 06:27] LABS: Anion Gap 4 mmol/L; Blood Urea Nitrogen 24 mg/dL (7-17); Calcium 9.5 mg/dL (8.4-10.2); Carbon Dioxide 30 mmol/L (22-30); Chloride 102 mmol/L (98-107); Creatine Kinase 454 U/L (30-135); Glucose 80 mg/dL (74-99); Potassium 4.1 mmol/L (3.5-5.1); Sodium 136 mmol/L (137-145)
[2017-07-19] MEDS ORDERED: LIDOCAINE 2%-EPI 1:200,000 20 ML VIAL SQ STA (07:50)
--- NOTE | 2017-07-19 10:24 | P.GSCN ---
History of Present Illness Consult date: 07/19/17 Reason for Consult: Right hip decubitus ulcer unstageable History of present illness: This is a 76-year-old female who has been in the hospital for several days she was initially admitted secondary to being found down at home. During her admission she was found to have a right hip decubitus ulcer which is unstageable at this time. This is secondary to an eschar over the wound. General surgery was consulted for debridment. Past Medical History Past Medical History: Hypertension, Thyroid Disorder History of Any Multi-Drug Resistant Organisms: None Reported Past Surgical History: Appendectomy, Hysterectomy Additional Past Surgical History / Comment(s): hip hemorroids Past Psychological History: No Psychological Hx Reported Smoking Status: Former smoker Past Alcohol Use History: None Reported Past Drug Use History: None Reported - Past Family History Mother Family Medical History: Congestive Heart Failure (CHF), Myocardial Infarction ( [place]) Medications and Allergies Home Medications Medication Instructions Recorded Confirmed Type Levothyroxine Sodium [Synthroid] 112 mcg PO DAILY 07/14/17 07/14/17 History Allergies Allergy/AdvReac Type Severity Reaction Status Date / Time Penicillins Allergy Unknown Verified 07/14/17 14:22 Surgical - Exam Osteopathic Statement: *. No significant issues noted on an osteopathic structural exam other than those noted in the History and Physical/Consult. Vital Signs Temp Pulse Resp BP 96.9 F L 59 L 18 126/58 07/14/17 13:43 07/14/17 13:43 07/14/17 13:43 07/14/17 13:43 - General well developed, well nourished, no distress - Eyes PERRL - ENT normal mucosa - Neck no masses, trachea midline - Respiratory normal expansion, normal respiratory effort - Abdomen Abdomen: soft, non tender - Integumentary Right hip decubitus ulcer unstageable secondary to eschar 4 x 5 cm - Neurologic normal coordination, normal sensation - Musculoskeletal normal gait - Psychiatric oriented to time, oriented to person, oriented to place Results - Labs 07/14/17 14:20 07/19/17 05:50 Abnormal Lab Results - Last 24 Hours (Table) 07/18/17 07/18/17 07/18/17 Range/Units 11:41 16:30 21:04 Sodium (137-145) mmol/L BUN (7-17) mg/dL POC Glucose (mg/dL) 200 H 115 H 112 H (75-99) mg/dL Creatine Kinase (30-135) U/L 07/19/17 Range/Units 05:50 Sodium 136 L (137-145) mmol/L BUN 24 H (7-17) mg/dL POC Glucose (mg/dL) (75-99) mg/dL Creatine Kinase 454 H (30-135) U/L Microbiology - Last 24 Hours (Table) 07/14/17 14:20 Urine Culture - Final Urine,Catheterized Aerococcus species 07/14/17 14:20 Blood Culture - Preliminary Blood No Growth after 96 hours Diabetes panel 07/19/17 Range/Units 05:50 Sodium 136 L (137-145) mmol/L Potassium 4.1 (3.5-5.1) mmol/L Chloride 102 (98-107) mmol/L Carbon Dioxide 30 (22-30) mmol/L BUN 24 H (7-17) mg/dL Creatinine 0.60 (0.52-1.04) mg/dL Glucose 80 (74-99) mg/dL Calcium 9.5 (8.4-10.2) mg/dL Calcium panel 07/19/17 Range/Units 05:50 Calcium 9.5 (8.4-10.2) mg/dL Pituitary panel 07/19/17 Range/Units 05:50 Sodium 136 L (137-145) mmol/L Potassium 4.1 (3.5-5.1) mmol/L Chloride 102 (98-107) mmol/L Carbon Dioxide 30 (22-30) mmol/L BUN 24 H (7-17) mg/dL Creatinine 0.60 (0.52-1.04) mg/dL Glucose 80 (74-99) mg/dL Calcium 9.5 (8.4-10.2) mg/dL Adrenal panel 07/19/17 Range/Units 05:50 Sodium 136 L (137-145) mmol/L Potassium 4.1 (3.5-5.1) mmol/L Chloride 102 (98-107) mmol/L Carbon Dioxide 30 (22-30) mmol/L BUN 24 H (7-17) mg/dL Creatinine 0.60 (0.52-1.04) mg/dL Glucose 80 (74-99) mg/dL Calcium 9.5 (8.4-10.2) mg/dL Assessment and Plan Assessment: Unstageable right ischial decubitus ulcer Plan: Plan is for sharp excisional debridement of right ischial decubitus ulcer. This benefits and alternatives of this were discussed with the patient the risks of bleeding infection damage surrounding tissue any further operation she stated she understood agreed and consented
--- NOTE | 2017-07-19 10:31 | P.PCN ---
Date of Procedure: 07/19/17 Preoperative Diagnosis: Unstageable right ischial ulcer Postoperative Diagnosis: Stage III right ischial ulcer Procedure(s) Performed: Sharp excisional debridement of right ischial ulcer 4 x 5 x 3 cm Anesthesia: local Surgeon: Waldemar Marshall Condition: stable Disposition: floor Indications for Procedure: This is a 68-year-old female who was found down at home upon admission she was found to have a right sided issue with acute his ulcer. This is unstageable this time secondary to an eschar. She described the risks benefits and alternatives to bedside debridement under local anesthetic risks including bleeding infection damage any tissue further operation she stated she understood agreed and consented Operative Findings: Stage III ischial ulcer Description of Procedure: Patient was prepped and draped in usual sterile fashion timeout performed correct patient correct procedure correct site was verified. 1% local lidocaine with epi was used to anesthetize the skin and subcutaneous tissues around the ulcer. The ulcer was then unroofed using a 15 blade scalpel. There was necrotic tissue underneath the eschar. This extended approximately 3 cm deep. This tissue was excised sharply. This was done down to healthy bleeding tissue. The area was then packed with sterile gauze and hemostasis was achieved sterile dressing was applied and the patient tolerated the procedure well no apparent complications
[2017-07-19] MEDS: ENOXAPARIN 30 MG/0.3 ML SYRINGE SQ SCH ×2 (10:45→21:10)
[2017-07-19] MEDS: THIAMINE 100 MG TAB PO SCH (10:45)
[2017-07-19] MEDS: MULTIVITAMINS, THERA 1 EACH TAB PO SCH (10:45)
[2017-07-19] MEDS: FOLIC ACID 1 MG TAB PO SCH (10:45)
[2017-07-19] MEDS: ASPIRIN 325 MG TAB PO SCH (10:45)
[2017-07-19 11:26] LABS: Glucose,Whole Blood 115 mg/dL (75-99)
[2017-07-19 14:52] VITALS: BMI 21.3
--- NOTE | 2017-07-19 16:04 | PN ---
PROGRESS NOTE DATE OF SERVICE: 07/19/2017 REASON FOR FOLLOWUP: 1. Unstageable pressure ulcer to the right hip area with a question of cellulitis. 2. UTI. INTERVAL HISTORY: The patient is afebrile. The patient did have bedside debridement of the right hip wound with no tracking down to the wound area. The patient tolerated the procedure. Currently denies having any worsening pain to the right hip wound area. The patient denies having any chest pain, shortness of breath or cough. No abdominal pain or any diarrhea. PHYSICAL EXAMINATION: Blood pressure is 160/68 with a pulse of 70, temperature 97. She is 98% on room air. General description is an elderly female up in the chair in no distress. RESPIRATORY SYSTEM: Unlabored breathing. Clear to auscultation anteriorly. HEART: S1, S2. Regular rate and rhythm. ABDOMEN: Soft. No tenderness. Right hip wound is currently dressed up. No obvious drainage on the dressing. LABS: BUN of 24, creatinine 0.60. Wound culture has been negative. Urine with aerococcus species. DIAGNOSTIC IMPRESSION AND PLAN: 1. Patient with a right hip unstageable wound, status post debridement, now with stage III pressure ulcer with no cellulitis. No purulence was noticed. Culture is negative. Will discontinue the vancomycin to decrease the risk of nephrotoxicity. 2. Possible urinary tract infection, currently covered with Rocephin. That can be discontinued on discharge. MMODL / IJN: [id number] /
[2017-07-19] MEDS: cefTRIAXone IN SWFI 2,000 MG/20 ML SYRINGE IVP SCH (16:13)
[2017-07-19 16:43] LABS: Glucose,Whole Blood 102 mg/dL (75-99)
[2017-07-19] MEDS: COLLAGENASE 250 UNIT/GM OINTMENT 30 GM TUBE TOPICAL SCH (20:57)
[2017-07-19 21:11] LABS: Glucose,Whole Blood 125 mg/dL (75-99)
[2017-07-19] MEDS: HYDROcodone/APAP 5-325MG 1 EACH TAB PO PRN (21:52)
--- NOTE | 2017-07-20 00:28 | P.PN ---
Subjective Progress Note Date: 07/19/17 Principal diagnosis: Rhabdomyolysis Patient is a 76-year-old female with a known history of hypertension, hypothyroidism and dementia who was brought by her family to the emergency room because she was found on the floor in her apartment. Patient was found have acute kidney injury, rhabdomyolysis and slightly elevated troponin level along with possible UTI. 07/15/2017 Patient is a poor historian and most of the history was taken from the medical records and nursing staff. Currently patient is on one-to-one feeding and is tolerating oral diet slowly. Currently patient is on Ringer lactate. 2-D echocardiogram was ordered. Cardiology and nephrology is following. CPK level is still elevated. Otherwise no fever no chills. TSH level was ordered 07/16/2017 Patient is awake and more oriented today. Able to tolerate oral diet with one on-1 feeding. Awaiting final culture reports on the right hip wound and urine final culture reports. 2-D echocardiogram was done showed normal ejection fraction. Otherwise CPK level is improving. No other acute overnight issues. Free T4 level within normal limits. Patient does have slightly elevated TSH level. 07/17/2017 Patient is more oriented today. Able to communicate slowly. Otherwise patient does have underlying dementia. Awaiting final urine culture and wound culture reports. CPK level continues to improve. Otherwise no fever no chills. 07/18/2017 Patient is able to sit in the chair today. No commerce of chest pain or shortness of breath. Patient is still having right hip decub ulcer with necrotic tissue. Gen. surgery was consulted for possible debridement and deep wound cultures. Otherwise patient is being converted on vancomycin at this time. Appreciate ID recommendations. No nausea vomiting or abdominal pain. Patient is clinically improving. Part is participating in physical therapy slowly. Patient is able to eat bypass of today. 07/19/2017 Patient is lying in the bed comfortably. Patient underwent debridement of right hip ulcer. Stage III currently. No purulence noted. Vancomycin has been discontinued as per ID recommendations. Otherwise patient is being treated for urinary tract infection with ceftriaxone. Patient denied any complaints of chest pain or shortness of breath. Tolerating oral diet otherwise. No acute overnight issues. Continued on wound care. Anticipate discharge to rehab in 1-2 days. Review of systems could not be apparent from the patient due to underlying dementia Active Medications Objective - Vital Signs Vital signs: Vital Signs Temp 97.0 F L 07/19/17 20:00 Pulse 70 07/19/17 20:45 Resp 18 07/19/17 20:00 BP 137/63 07/19/17 20:00 Pulse Ox 96 07/19/17 20:00 Intake & Output 07/19/17 07/19/17 07/20/17 06:59 18:59 06:59 Intake Total 150 1680 Output Total 1803 Balance -1653 1680 Weight 53 kg 53 kg Intake: Intake, IV Titration 150 Amount Lactated Ringers 1,000 ml 150 @ 75 mls/hr IV .[id number] [facility] Rx#:[id number] Oral 1680 Output: Urine 1800 Stool 3 Other: Voiding Method Indwelling Catheter Indwelling Catheter # Bowel Movements 1 - Exam PHYSICAL EXAMINATION: Patient is lying in the bed comfortably, no acute distress, awake alert but not oriented. Patient is able to give answers slowly. HEENT: Normocephalic. Neck is supple. Pupils reactive. Nostrils clear. Oral cavity is moist. Ears reveal no drainage. Neck reveals no JVD, carotid bruits, or thyromegaly. CHEST EXAMINATION: Trachea is central. Symmetrical expansion. Lung rubalcava clear to auscultation and percussion. CARDIAC: Normal S1, S2 with no gallops. No murmurs ABDOMEN: Soft. Bowel sounds normal. No organomegaly. No abdominal bruits. Extremities: reveal no edema. No clubbing or cyanosis. Right hip wound/ulcer Neurologically awake, alert,. Able to move all extremities . No focal deficits noted Skin: No rash or skin lesions except above. Psychiatric: Cooperative. Could not assess completely Musculoskeletal: No joint swelling or deformity. Normal range of motion. - Labs CBC & Chem 7: 07/14/17 14:20 07/19/17 05:50 Labs: Abnormal Lab Results - Last 24 Hours (Table) 07/19/17 07/19/17 07/19/17 Range/Units 05:50 11:24 16:38 Sodium 136 L (137-145) mmol/L BUN 24 H (7-17) mg/dL POC Glucose (mg/dL) 115 H 102 H (75-99) mg/dL Creatine Kinase 454 H (30-135) U/L 07/19/17 Range/Units 21:09 Sodium (137-145) mmol/L BUN (7-17) mg/dL POC Glucose (mg/dL) 125 H (75-99) mg/dL Creatine Kinase (30-135) U/L Microbiology - Last 24 Hours (Table) 07/14/17 14:20 Blood Culture - Preliminary Blood No Growth after 120 hours 07/14/17 14:20 Urine Culture - Final Urine,Catheterized Aerococcus species Assessment and Plan Assessment: Acute rhabdomyolysis status post fall and was on the floor/immobility. CPK level is improved Acute kidney injury possible ATN. Improved Dehydration Elevated troponin level likely due to BEATRIS and rhabdomyolysis Dementia urinary tract infection sepsis. Urine culture showed erococcus species. Nonsignificant Right hip decubitus ulcer stage III wound with no signs of infection/thickened tissue. Status post debridement on 07/19/2017 Hypertension Hypothyroidism Plan: Patient be continued on IV hydration with Ringers lactate. Patient is status post debridement. Vancomycin has been discontinued. Continue with antibiotics in the form of ceftriaxone and follow-up renal function. Urine culture showed enterococcus species possibly nonsignificant. Cardiology and ID and nephrology is following. Further recommendations based on the clinical course. Prognosis is guarded with multiple medical problems and comorbid conditions. Patient does have poor functional status. Anticipate to be discharged to rehab in 1-2 days. Time with Patient: Greater than 30
[2017-07-20 06:15] LABS: Glucose,Whole Blood 140 mg/dL (75-99)
[2017-07-20] MEDS: PANTOPRAZOLE 40 MG TABLET PO SCH (06:23)
[2017-07-20] MEDS: LEVOTHYROXINE 112 MCG TAB PO SCH (06:23)
[2017-07-20] MEDS: ACETAMINOPHEN TAB 325 MG TAB PO PRN (09:04)
[2017-07-20] MEDS: ASPIRIN 325 MG TAB PO SCH (09:54)
[2017-07-20] MEDS: ENOXAPARIN 30 MG/0.3 ML SYRINGE SQ SCH ×2 (09:54→20:20)
[2017-07-20] MEDS: LACTATED RINGERS 1,000 ML IV SCH ×2 (09:55→21:49)
[2017-07-20] MEDS: MULTIVITAMINS, THERA 1 EACH TAB PO SCH (09:56)
[2017-07-20] MEDS: FOLIC ACID 1 MG TAB PO SCH (09:56)
[2017-07-20] MEDS: THIAMINE 100 MG TAB PO SCH (09:56)
[2017-07-20 11:54] LABS: Glucose,Whole Blood 124 mg/dL (75-99)
[2017-07-20] MEDS: HYDROcodone/APAP 5-325MG 1 EACH TAB PO PRN (13:11)
[2017-07-20] MEDS ORDERED: SILVER NITRATE APPLICATOR 1 EACH STICK..EA. TOPICAL STA (15:44)
[2017-07-20] MEDS: cefTRIAXone IN SWFI 2,000 MG/20 ML SYRINGE IVP SCH (16:03)
--- NOTE | 2017-07-20 16:30 | P.PN ---
Subjective Progress Note Date: 07/20/17 Principal diagnosis: Rhabdomyolysis; acute renal injury; UTI Patient is a 76-year-old female with a known history of hypertension, hypothyroidism and dementia who was brought by her family to the emergency room because she was found on the floor in her apartment. Patient was found have acute kidney injury, rhabdomyolysis and slightly elevated troponin level along with possible UTI 07/20/2017 Patient is seen in the room at bedside. Patient is status post debridement right hip decubitus ulcer; renal function and electrolytes are currently improving; urine culture is available and we await final sensitivity report; plan is to discharge patient in next 24-48 hours if remains stable Objective - Vital Signs Vital signs: Vital Signs Temp 98.1 F 07/20/17 12:40 Pulse 66 07/20/17 12:40 Resp 18 07/20/17 12:40 BP 113/56 07/20/17 12:40 Pulse Ox 94 L 07/20/17 12:40 Intake & Output 07/19/17 07/20/17 07/20/17 18:59 06:59 18:59 Intake Total 5596 996 5701 Output Total 1103 Balance 1680 -203 1400 Weight 53 kg 54.5 kg Intake: Intake, IV Titration 900 600 Amount Lactated Ringers 1,000 ml 900 600 @ 75 mls/hr IV .[id number] [facility] Rx#:[id number] Oral 1680 800 Output: Urine 1100 Stool 3 Other: Voiding Method Indwelling Catheter Indwelling Catheter Indwelling Catheter # Bowel Movements 1 - Constitutional General appearance: Present: no acute distress - EENT Eyes: Present: anicteric sclerae, PERRLA, normal appearance ENT: Present: hard of hearing - Neck Neck: Present: normal ROM. Absent: lymphadenopathy, thyromegaly Carotids: negative: bruit present Thyroid: bilateral: normal size, enlarged - Respiratory Respiratory: bilateral: diminished, rhonchi, wheezing - Cardiovascular Rhythm: regular Heart sounds: normal: S1, S2 Abnormal Heart Sounds: Absent: systolic murmur - Gastrointestinal General gastrointestinal: Present: normal bowel sounds, soft. Absent: distended , organomegaly, tenderness - Integumentary Integumentary: Present: normal turgor. Absent: rash, ulcer - Neurologic Neurologic: Present: CNII-XII intact. Absent: focal deficits - Musculoskeletal Musculoskeletal: Present: gait normal, generalized weakness - Psychiatric Psychiatric: Present: A&O x's 3, appropriate affect, intact judgment & insight - Labs CBC & Chem 7: 07/14/17 14:20 07/19/17 05:50 Labs: Abnormal Lab Results - Last 24 Hours (Table) 07/19/17 07/19/17 07/20/17 Range/Units 16:38 21:09 06:11 POC Glucose (mg/dL) 102 H 125 H 140 H (75-99) mg/dL 07/20/17 Range/Units 11:50 POC Glucose (mg/dL) 124 H (75-99) mg/dL Microbiology - Last 24 Hours (Table) 07/14/17 14:20 Blood Culture - Preliminary Blood No Growth after 120 hours Assessment and Plan Assessment: 1. Acute rhabdomyolysis status post fall 2. Acute renal injury possible ATN and 3. Dehydration 4. UTI/sepsis 5. Right hip decubitus ulcer stage III; status post debridement on 07/19/2017 6. Elevated troponin possibly secondary to BEATRIS and rhabdomyolysis 7. Hypertension 8. Hypothyroidism Patient be continued on IV hydration with Ringers lactate. Patient is status post debridement. Vancomycin has been discontinued. Continue with antibiotics in the form of ceftriaxone and follow-up renal function. Urine culture showed enterococcus species possibly nonsignificant. Cardiology and ID and nephrology is following. Further recommendations based on the clinical course. Prognosis is guarded with multiple medical problems and comorbid conditions. Patient does have poor functional status. Anticipate to be discharged to rehab in 1-2 days. Time with Patient: Greater than 30
--- NOTE | 2017-07-20 16:35 | PN ---
PROGRESS NOTE DATE OF SERVICE: 07/20/2017 REASON FOR FOLLOWUP: 1. Right hip stage III pressure ulcer cellulitis. 2. UTI. INTERVAL HISTORY: The patient is afebrile. She is currently breathing comfortably. Denies having any chest pain, shortness of breath or cough. No worsening pain in the right hip wound area or any diarrhea. PHYSICAL EXAMINATION: Blood pressure 113/56, pulse of 66, temperature of 98.1. She is 94% on room air. General description is an elderly female up in the chair in no distress. RESPIRATORY SYSTEM: Unlabored breathing. Clear to auscultation anteriorly. HEART: S1, S2. Regular rate and rhythm. ABDOMEN: Soft. No tenderness. LABS: No new labs have been obtained today. DIAGNOSTIC IMPRESSION AND PLAN: 1. Patient with a right hip stage III pressure ulcer, status post surgical debridement. Overall the wound looks clean per the RN who changed the dressing. Local wound care is to continue with Santyl followed by moist dressing. Keep the area off the pressure. 2. Patient with a urinary tract infection, adequately treated with Rocephin. That can be discontinued on discharge. MMODL / IJN: [id number] / MTDLora
[2017-07-20 16:45] LABS: Glucose,Whole Blood 117 mg/dL (75-99)
[2017-07-20] MEDS: COLLAGENASE 250 UNIT/GM OINTMENT 30 GM TUBE TOPICAL SCH (20:18)
[2017-07-20 21:03] LABS: Glucose,Whole Blood 148 mg/dL (75-99)
[2017-07-21] MEDS: HYDROcodone/APAP 5-325MG 1 EACH TAB PO PRN ×2 (02:49→09:42)
[2017-07-21 06:30] LABS: Glucose,Whole Blood 90 mg/dL (75-99)
[2017-07-21 06:41] LABS: Basophils % (A) 1 %; Eosinophils # (A) 0.2 k/uL (0-0.7); Eosinophils % (A) 2 %; HCT 28.2 % (34.0-46.0); Lymphocytes # (A) 1.3 k/uL (1.0-4.8); Lymphocytes % (A) 17 %; MCH 30.6 pg (25.0-35.0); MCHC 32.7 g/dL (31.0-37.0); MCV 93.4 fL (80.0-100.0); Mean Platelet Volume 7.9; Monocytes # (A) 0.4 k/uL (0-1.0); Monocytes % (A) 6 %; Neutrophils # (A) 5.3 k/uL (1.3-7.7); Neutrophils % (A) 72 %; Platelet Count 208 k/uL (150-450); RBC 3.02 m/uL (3.80-5.40); RDW 13.2 % (11.5-15.5); WBC 7.4 k/uL (3.8-10.6)
[2017-07-21 06:46] LABS: HGB 9.2 gm/dL (11.4-16.0)
[2017-07-21 07:02] LABS: Anion Gap 6 mmol/L; Blood Urea Nitrogen 32 mg/dL (7-17); Calcium 9.6 mg/dL (8.4-10.2); Carbon Dioxide 29 mmol/L (22-30); Chloride 100 mmol/L (98-107); Glucose 78 mg/dL (74-99); Potassium 4.6 mmol/L (3.5-5.1); Sodium 135 mmol/L (137-145)
[2017-07-21] MEDS: ASPIRIN 325 MG TAB PO SCH (09:41)
[2017-07-21] MEDS: ENOXAPARIN 30 MG/0.3 ML SYRINGE SQ SCH ×2 (09:41→20:45)
[2017-07-21] MEDS: LEVOTHYROXINE 112 MCG TAB PO SCH (11:51)
[2017-07-21] MEDS: PANTOPRAZOLE 40 MG TABLET PO SCH (11:52)
[2017-07-21] MEDS: FOLIC ACID 1 MG TAB PO SCH (12:15)
[2017-07-21] MEDS: MULTIVITAMINS, THERA 1 EACH TAB PO SCH (12:15)
[2017-07-21] MEDS: THIAMINE 100 MG TAB PO SCH (12:15)
[2017-07-21] MEDS: LACTATED RINGERS 1,000 ML IV SCH (12:16)
[2017-07-21 12:19] LABS: Glucose,Whole Blood 130 mg/dL (75-99)
--- NOTE | 2017-07-21 14:09 | P.PN ---
Subjective Progress Note Date: 07/21/17 Patient is doing well. No complaints. Wound was inspected yesterday and required silver nitrate sticks for hemostasis as there was a small amount of oozing. There is no bleeding overnight. Objective - Vital Signs Vital signs: Vital Signs Temp 98.4 F 07/21/17 08:00 Pulse 65 07/21/17 08:00 Resp 16 07/21/17 08:00 BP 133/63 07/21/17 08:00 Pulse Ox 95 07/21/17 08:00 Intake & Output 07/20/17 07/21/17 07/21/17 18:59 06:59 18:59 Intake Total 1400 1100 240 Output Total 1200 3205 1 Balance 200 -2105 239 Weight 54.5 kg Intake: Intake, IV Titration 600 900 Amount Lactated Ringers 1,000 ml 600 900 @ 75 mls/hr IV .[id number] BHUMI Rx#:[id number] Oral 800 200 240 Output: Urine 1200 3200 Stool 5 1 Other: Voiding Method Indwelling Catheter Indwelling Catheter Indwelling Catheter # Bowel Movements 1 - Constitutional General appearance: Present: cooperative - Respiratory Details: Nonlabored - Gastrointestinal Gastrointestinal Comment(s): Soft nondistended nontender - Integumentary Integumentary Comment(s): Right hip wound clean dry dressing in place - Psychiatric Psychiatric: Present: A&O x's 3 - Labs CBC & Chem 7: 07/21/17 05:57 07/21/17 05:57 Labs: Abnormal Lab Results - Last 24 Hours (Table) 07/20/17 07/20/17 07/21/17 Range/Units 16:38 21:02 05:57 RBC 3.02 L (3.80-5.40) m/uL Hgb 9.2 L D (11.4-16.0) gm/dL Hct 28.2 L (34.0-46.0) % Sodium (137-145) mmol/L BUN (7-17) mg/dL POC Glucose (mg/dL) 117 H 148 H (75-99) mg/dL 07/21/17 07/21/17 Range/Units 05:57 11:59 RBC (3.80-5.40) m/uL Hgb (11.4-16.0) gm/dL Hct (34.0-46.0) % Sodium 135 L (137-145) mmol/L BUN 32 H (7-17) mg/dL POC Glucose (mg/dL) 130 H (75-99) mg/dL Microbiology - Last 24 Hours (Table) 07/14/17 14:20 Blood Culture - Final Blood No Growth after 144 hours Assessment and Plan Assessment: Stage III right ischial wound status post debridement Plan: Continue wet-to-dry dressing changes sample may be used. Patient stable from a surgical standpoint. She may follow-up in the wound care clinic
--- NOTE | 2017-07-21 15:06 | P.PN ---
Subjective Progress Note Date: 07/21/17 Principal diagnosis: Rhabdomyolysis; acute renal injury; UTI Patient is a 76-year-old female with a known history of hypertension, hypothyroidism and dementia who was brought by her family to the emergency room because she was found on the floor in her apartment. Patient was found have acute kidney injury, rhabdomyolysis and slightly elevated troponin level along with possible UTI 07/20/2017 Patient is seen in the room at bedside. Patient is status post debridement right hip decubitus ulcer; renal function and electrolytes are currently improving; urine culture is available and we await final sensitivity report; plan is to discharge patient in next 24-48 hours if remains stable 07/21/2017 Patient seen in the room at bedside; wants to be discharged back to [facility]; had small amount of oozing from the wound requiting silver nitrate sticks; no report of bleeding overnight Objective - Vital Signs Vital signs: Vital Signs Temp 98.4 F 07/21/17 08:00 Pulse 73 07/21/17 12:00 Resp 18 07/21/17 12:00 BP 144/68 07/21/17 12:00 Pulse Ox 97 07/21/17 12:00 Intake & Output 07/20/17 07/21/17 07/21/17 18:59 06:59 18:59 Intake Total 1400 1100 462 Output Total 1200 3205 501 Balance 200 -2105 -39 Weight 54.5 kg Intake: Intake, IV Titration 600 900 Amount Lactated Ringers 1,000 ml 600 900 @ 75 mls/hr IV .[id number] BHUMI Rx#:[id number] Oral 800 200 462 Output: Urine 1200 3200 500 Stool 5 1 Other: Voiding Method Indwelling Catheter Indwelling Catheter Indwelling Catheter # Bowel Movements 1 - Exam - Constitutional General appearance: Present: average body habitus, cooperative, no acute distress - EENT Eyes: Present: anicteric sclerae, EOMI, PERRLA, normal appearance ENT: Present: hearing grossly normal, normal oropharynx Ears: bilateral: normal - Neck Neck: Present: normal ROM. Absent: lymphadenopathy, rigidity, thyromegaly Carotids: negative: bruit present Thyroid: bilateral: normal size, negative: enlarged, nodule - Respiratory Respiratory: bilateral: CTA, negative: rales, rhonchi, wheezing - Cardiovascular Rhythm: regular Heart sounds: normal: S1, S2 Abnormal Heart Sounds: Absent: systolic murmur, diastolic murmur - Gastrointestinal General gastrointestinal: Present: normal bowel sounds, soft. Absent: distended , organomegaly, tenderness - Genitourinary Genitourinary Comment(s): deferred - Integumentary Integumentary: Present: normal turgor. Absent: jaundiced, rash, ulcer - Neurologic Neurologic: Present: CNII-XII intact. Absent: focal deficits - Musculoskeletal Musculoskeletal: Present: gait normal, strength equal bilaterally - Psychiatric Psychiatric: Present: A&O x's 3, appropriate affect, intact judgment & insight - Labs CBC & Chem 7: 07/21/17 05:57 07/21/17 05:57 Labs: Abnormal Lab Results - Last 24 Hours (Table) 07/20/17 07/20/17 07/21/17 Range/Units 16:38 21:02 05:57 RBC 3.02 L (3.80-5.40) m/uL Hgb 9.2 L D (11.4-16.0) gm/dL Hct 28.2 L (34.0-46.0) % Sodium (137-145) mmol/L BUN (7-17) mg/dL POC Glucose (mg/dL) 117 H 148 H (75-99) mg/dL 07/21/17 07/21/17 Range/Units 05:57 11:59 RBC (3.80-5.40) m/uL Hgb (11.4-16.0) gm/dL Hct (34.0-46.0) % Sodium 135 L (137-145) mmol/L BUN 32 H (7-17) mg/dL POC Glucose (mg/dL) 130 H (75-99) mg/dL Microbiology - Last 24 Hours (Table) 07/14/17 14:20 Blood Culture - Final Blood No Growth after 144 hours Assessment and Plan Assessment: 1. Acute rhabdomyolysis status post fall 2. Acute renal injury possible ATN and 3. Dehydration 4. UTI/sepsis 5. Right hip decubitus ulcer stage III; status post debridement on 07/19/2017 6. Elevated troponin possibly secondary to BEATRIS and rhabdomyolysis 7. Hypertension 8. Hypothyroidism Patient be continued on IV hydration with Ringers lactate. Patient is status post debridement. Vancomycin has been discontinued. Continue with antibiotics in the form of ceftriaxone and follow-up renal function. Urine culture showed enterococcus species possibly nonsignificant. Cardiology and ID and nephrology is following. Further recommendations based on the clinical course. Prognosis is guarded with multiple medical problems and comorbid conditions. Patient does have poor functional status. Anticipate to be discharged to rehab in 1-2 days.
[2017-07-21 16:34] LABS: Glucose,Whole Blood 264 mg/dL (75-99)
[2017-07-21] MEDS: cefTRIAXone IN SWFI 2,000 MG/20 ML SYRINGE IVP SCH (17:50)
[2017-07-21] MEDS: PSYLLIUM HUSK 100% 6 GM PACKET PO SCH (17:51)
[2017-07-21 19:34] LABS: Glucose,Whole Blood 173 mg/dL (75-99)
[2017-07-21 20:38] VITALS: RESP 16
[2017-07-21] MEDS: COLLAGENASE 250 UNIT/GM OINTMENT 30 GM TUBE TOPICAL SCH (20:45)
[2017-07-22] MEDS: LACTATED RINGERS 1,000 ML IV SCH ×2 (02:00→16:40)
[2017-07-22] MEDS: LEVOTHYROXINE 112 MCG TAB PO SCH (05:55)
[2017-07-22 06:00] LABS: Glucose,Whole Blood 86 mg/dL (75-99)
[2017-07-22 07:06] LABS: Basophils % (A) 1 %; Eosinophils # (A) 0.2 k/uL (0-0.7); Eosinophils % (A) 2 %; HCT 27.2 % (34.0-46.0); HGB 8.8 gm/dL (11.4-16.0); Lymphocytes # (A) 1.1 k/uL (1.0-4.8); Lymphocytes % (A) 13 %; MCH 30.3 pg (25.0-35.0); MCHC 32.5 g/dL (31.0-37.0); MCV 93.4 fL (80.0-100.0); Monocytes # (A) 0.5 k/uL (0-1.0); Monocytes % (A) 6 %; Neutrophils # (A) 6.2 k/uL (1.3-7.7); Neutrophils % (A) 76 %; Platelet Count 216 k/uL (150-450); RBC 2.91 m/uL (3.80-5.40); RDW 13.3 % (11.5-15.5); WBC 8.2 k/uL (3.8-10.6)
[2017-07-22 07:18] LABS: Anion Gap 5 mmol/L; Blood Urea Nitrogen 25 mg/dL (7-17); Calcium 9.4 mg/dL (8.4-10.2); Carbon Dioxide 28 mmol/L (22-30); Chloride 102 mmol/L (98-107); Glucose 85 mg/dL (74-99); Potassium 4.5 mmol/L (3.5-5.1); Sodium 135 mmol/L (137-145)
[2017-07-22] MEDS: ASPIRIN 325 MG TAB PO SCH (08:35)
[2017-07-22] MEDS: PANTOPRAZOLE 40 MG TABLET PO SCH (08:35)
[2017-07-22] MEDS: ENOXAPARIN 30 MG/0.3 ML SYRINGE SQ SCH ×2 (08:36→20:31)
[2017-07-22] MEDS: PSYLLIUM HUSK 100% 6 GM PACKET PO SCH (09:26)
--- NOTE | 2017-07-22 11:08 | P.PN ---
Subjective Progress Note Date: 07/22/17 Patient is doing well. No complaints. Wound clean with no bleeding overnight. Objective - Vital Signs Vital signs: Vital Signs Temp 97.7 F 07/22/17 07:00 Pulse 68 07/22/17 08:00 Resp 16 07/22/17 08:00 BP 122/58 07/22/17 07:00 Pulse Ox 96 07/22/17 07:00 Intake & Output 07/21/17 07/22/17 07/22/17 18:59 06:59 18:59 Intake Total 462 Output Total 1002 2200 201 Balance -540 -2200 -201 Intake: Oral 462 Output: Urine 1000 2200 200 Uretheral (Arevalo) 1200 Stool 2 1 Other: Voiding Method Indwelling Catheter Indwelling Catheter Indwelling Catheter # Voids 0 0 - Constitutional General appearance: Present: cooperative - Respiratory Details: nonlabored - Cardiovascular Rhythm: regular - Gastrointestinal Gastrointestinal Comment(s): s/nt/nd - Integumentary Integumentary Comment(s): stage 3 decube clean with no bleeding. - Psychiatric Psychiatric: Present: A&O x's 3 - Labs CBC & Chem 7: 07/22/17 06:45 07/22/17 06:45 Labs: Abnormal Lab Results - Last 24 Hours (Table) 07/21/17 07/21/17 07/21/17 Range/Units 11:59 16:28 19:29 RBC (3.80-5.40) m/uL Hgb (11.4-16.0) gm/dL Hct (34.0-46.0) % Sodium (137-145) mmol/L BUN (7-17) mg/dL POC Glucose (mg/dL) 130 H 264 H 173 H (75-99) mg/dL 07/22/17 07/22/17 Range/Units 06:45 06:45 RBC 2.91 L (3.80-5.40) m/uL Hgb 8.8 L (11.4-16.0) gm/dL Hct 27.2 L (34.0-46.0) % Sodium 135 L (137-145) mmol/L BUN 25 H (7-17) mg/dL POC Glucose (mg/dL) (75-99) mg/dL Assessment and Plan Assessment: Stage III right ischial wound status post debridement Plan: No plans for further surgical intervention. Recommend wet to dry dressing changes BID with santyl as needed for enzymatic debridment. Wound care consult and follow up in wound care clinic. Please contact me if there is any other concerns
[2017-07-22 11:49] LABS: Glucose,Whole Blood 123 mg/dL (75-99)
[2017-07-22] MEDS: MULTIVITAMINS, THERA 1 EACH TAB PO SCH (12:26)
[2017-07-22] MEDS: FOLIC ACID 1 MG TAB PO SCH (12:26)
[2017-07-22] MEDS: THIAMINE 100 MG TAB PO SCH (12:26)
[2017-07-22] MEDS: cefTRIAXone IN SWFI 2,000 MG/20 ML SYRINGE IVP SCH (16:40)
[2017-07-22 17:03] LABS: Glucose,Whole Blood 101 mg/dL (75-99)
--- NOTE | 2017-07-22 17:42 | P.PN ---
Subjective Progress Note Date: 07/22/17 Principal diagnosis: Rhabdomyolysis; acute renal injury; UTI Patient is a 76-year-old female with a known history of hypertension, hypothyroidism and dementia who was brought by her family to the emergency room because she was found on the floor in her apartment. Patient was found have acute kidney injury, rhabdomyolysis and slightly elevated troponin level along with possible UTI 07/20/2017 Patient is seen in the room at bedside. Patient is status post debridement right hip decubitus ulcer; renal function and electrolytes are currently improving; urine culture is available and we await final sensitivity report; plan is to discharge patient in next 24-48 hours if remains stable 07/21/2017 Patient seen in the room at bedside; wants to be discharged back to [facility]; had small amount of oozing from the wound requiting silver nitrate sticks; no report of bleeding overnight 07/22/2017 Patient is seen and evaluated at bedside; remains afebrile and symptom free; surgical service is following for dressing changes and recommended twice a day that Santyl and enzymatic debridement as needed; planned to be transferred to [facility] tomorrow morning Objective - Vital Signs Vital signs: Vital Signs Temp 98.2 F 07/22/17 15:00 Pulse 68 07/22/17 15:36 Resp 16 07/22/17 15:36 BP 122/57 07/22/17 15:00 Pulse Ox 97 07/22/17 15:00 Intake & Output 07/21/17 07/22/17 07/22/17 18:59 06:59 18:59 Intake Total 462 160 Output Total 1002 2200 2802 Balance -540 -2200 -2642 Intake: Oral 462 160 Output: Urine 1000 2200 2800 Uretheral (Arevalo) 1200 200 Stool 2 2 Other: Voiding Method Indwelling Catheter Indwelling Catheter Indwelling Catheter # Voids 0 0 - Exam - Constitutional General appearance: Present: average body habitus, cooperative, no acute distress - EENT Eyes: Present: anicteric sclerae, EOMI, PERRLA, normal appearance ENT: Present: hearing grossly normal, normal oropharynx Ears: bilateral: normal - Neck Neck: Present: normal ROM. Absent: lymphadenopathy, rigidity, thyromegaly Carotids: negative: bruit present Thyroid: bilateral: normal size, negative: enlarged, nodule - Respiratory Respiratory: bilateral: CTA, negative: rales, rhonchi, wheezing - Cardiovascular Rhythm: regular Heart sounds: normal: S1, S2 Abnormal Heart Sounds: Absent: systolic murmur, diastolic murmur - Gastrointestinal General gastrointestinal: Present: normal bowel sounds, soft. Absent: distended , organomegaly, tenderness - Genitourinary Genitourinary Comment(s): deferred - Integumentary Integumentary: Present: normal turgor. Absent: jaundiced, rash, ulcer - Neurologic Neurologic: Present: CNII-XII intact. Absent: focal deficits - Musculoskeletal Musculoskeletal: Present: gait normal, strength equal bilaterally - Psychiatric Psychiatric: Present: A&O x's 3, appropriate affect, intact judgment & insight - Labs CBC & Chem 7: 07/22/17 06:45 07/22/17 06:45 Labs: Abnormal Lab Results - Last 24 Hours (Table) 07/21/17 07/22/17 07/22/17 Range/Units 19:29 06:45 06:45 RBC 2.91 L (3.80-5.40) m/uL Hgb 8.8 L (11.4-16.0) gm/dL Hct 27.2 L (34.0-46.0) % Sodium 135 L (137-145) mmol/L BUN 25 H (7-17) mg/dL POC Glucose (mg/dL) 173 H (75-99) mg/dL 07/22/17 07/22/17 Range/Units 11:48 17:02 RBC (3.80-5.40) m/uL Hgb (11.4-16.0) gm/dL Hct (34.0-46.0) % Sodium (137-145) mmol/L BUN (7-17) mg/dL POC Glucose (mg/dL) 123 H 101 H (75-99) mg/dL Assessment and Plan Assessment: 1. Acute rhabdomyolysis status post fall 2. Acute renal injury possible ATN and 3. Dehydration 4. UTI/sepsis 5. Right hip decubitus ulcer stage III; status post debridement on 07/19/2017 6. Elevated troponin possibly secondary to BEATRIS and rhabdomyolysis 7. Hypertension 8. Hypothyroidism Patient be continued on IV hydration with Ringers lactate. Patient is status post debridement. Vancomycin has been discontinued. Continue with antibiotics in the form of ceftriaxone and follow-up renal function. Urine culture showed enterococcus species possibly nonsignificant. Cardiology and ID and nephrology is following. Further recommendations based on the clinical course. Prognosis is guarded with multiple medical problems and comorbid conditions. Patient does have poor functional status. Anticipate to be discharged to rehab in 1-2 days. Time with Patient: Greater than 30
[2017-07-22] MEDS: ACETAMINOPHEN TAB 325 MG TAB PO PRN (19:33)
[2017-07-22] MEDS: COLLAGENASE 250 UNIT/GM OINTMENT 30 GM TUBE TOPICAL SCH (19:34)
[2017-07-22 20:00] LABS: Glucose,Whole Blood 150 mg/dL (75-99)
[2017-07-23] MEDS: LEVOTHYROXINE 112 MCG TAB PO SCH (05:49)
[2017-07-23] MEDS: LACTATED RINGERS 1,000 ML IV SCH ×2 (05:51→17:28)
--- NOTE | 2017-07-23 06:39 | PN ---
PROGRESS NOTE DATE OF SERVICE: 07/22/2017. REASON FOR FOLLOWUP: 1. Right hip pressure ulcer, stage III. 2. UTI. INTERVAL HISTORY: The patient is afebrile. She is breathing comfortably. Denies having any chest pain, shortness of breath, or cough. No abdominal pain, no diarrhea. No pain in the right hip area. PHYSICAL EXAMINATION: On examination, blood pressure is 123/58 with a pulse of 76, temperature 97. She is 97% on room air. General description is an elderly female, lying in bed in no distress. RESPIRATORY SYSTEM: Unlabored breathing, clear to auscultation anteriorly. HEART: S1, S2. Regular rate and rhythm. ABDOMEN: Soft, no tenderness. Right hip wound still has slight slough tissue. Surrounding redness and swelling has improved. No drainage. DIAGNOSTIC IMPRESSION AND PLAN: 1. Patient with right hip stage III pressure ulcer, status post surgical debridement. Wound still has the necrotic tissue. Hence, will continue local wound care with Santyl followed by moist dressing. 2. Patient with urinary tract infection, adequately treated. Discontinue the Rocephin. MMODL / IJN: [id number] /
[2017-07-23 07:20] LABS: Basophils % (A) 1 %; Eosinophils # (A) 0.2 k/uL (0-0.7); Eosinophils % (A) 2 %; HCT 28.7 % (34.0-46.0); HGB 9.3 gm/dL (11.4-16.0); Hypochromasia Slight; Lymphocytes % (A) 13 %; MCHC 32.5 g/dL (31.0-37.0); MCV 95.2 fL (80.0-100.0); Mean Platelet Volume 8.4; Monocytes # (A) 0.5 k/uL (0-1.0); Monocytes % (A) 7 %; Neutrophils # (A) 5.9 k/uL (1.3-7.7); Neutrophils % (A) 76 %; Platelet Count 232 k/uL (150-450); RBC 3.01 m/uL (3.80-5.40); RDW 13.4 % (11.5-15.5); WBC 7.7 k/uL (3.8-10.6)
[2017-07-23 07:39] LABS: Anion Gap 3 mmol/L; Blood Urea Nitrogen 27 mg/dL (7-17); Calcium 9.4 mg/dL (8.4-10.2); Carbon Dioxide 30 mmol/L (22-30); Chloride 103 mmol/L (98-107); Glucose 79 mg/dL (74-99); Potassium 4.7 mmol/L (3.5-5.1); Sodium 136 mmol/L (137-145)
[2017-07-23 07:47] LABS: Glucose,Whole Blood 84 mg/dL (75-99)
[2017-07-23] MEDS: PANTOPRAZOLE 40 MG TABLET PO SCH (09:38)
[2017-07-23] MEDS: MULTIVITAMINS, THERA 1 EACH TAB PO SCH (09:38)
[2017-07-23] MEDS: ENOXAPARIN 30 MG/0.3 ML SYRINGE SQ SCH (09:38)
[2017-07-23] MEDS: ASPIRIN 325 MG TAB PO SCH (09:38)
[2017-07-23] MEDS: FOLIC ACID 1 MG TAB PO SCH (09:38)
[2017-07-23] MEDS: THIAMINE 100 MG TAB PO SCH (09:38)
[2017-07-23] MEDS: PSYLLIUM HUSK 100% 6 GM PACKET PO SCH (09:40)
[2017-07-23 11:46] LABS: Glucose,Whole Blood 124 mg/dL (75-99)
--- NOTE | 2017-07-23 14:38 | P.DS ---
Providers Date of admission: 07/14/17 16:43 Expected date of discharge: 07/23/17 Attending physician: Baudilio Bob Consults: 07/14/17 16:43 Consult Physician Stat Consulting Provider: Cedric Kaiser Consult Reason/Comments: Elevated troponin Do you want consulting provider notified?: Yes Consult Physician Stat Consulting Provider: Alejandra Levy Consult Reason/Comments: rhabdomyolysis, renal insufficiency Do you want consulting provider notified?: Yes 07/14/17 16:50 Consult Physician Stat Consulting Provider: Cassi Reyes Consult Reason/Comments: Large wound on the right hip Do you want consulting provider notified?: Yes 07/14/17 18:46 Consult Physician Stat Consulting Provider: Cassi Reyes Consult Reason/Comments: STAGE 3 DECUB Do you want consulting provider notified?: Yes 07/18/17 13:04 Consult Physician Urgent Consulting Provider: Mark Mccarthy Consult Reason/Comments: right hip wound for surgical debridment Do you want consulting provider notified?: Yes Primary care physician: Jeevan Reilly Hospital Course: Final Diagnoses: 1. Acute rhabdomyolysis status post fall 2. Acute renal injury possible ATN and 3. Dehydration 4. UTI/sepsis 5. Right hip decubitus ulcer stage III; status post debridement on 07/19/2017 6. Elevated troponin possibly secondary to BEATRIS and rhabdomyolysis 7. Hypertension 8. Hypothyroidism Hospital course: Rhabdomyolysis; acute renal injury; UTI Patient is a 76-year-old female with a known history of hypertension, hypothyroidism and dementia who was brought by her family to the emergency room because she was found on the floor in her apartment. Patient was found have acute kidney injury, rhabdomyolysis and slightly elevated troponin level along with possible UTI 07/20/2017 Patient is seen in the room at bedside. Patient is status post debridement right hip decubitus ulcer; renal function and electrolytes are currently improving; urine culture is available and we await final sensitivity report; plan is to discharge patient in next 24-48 hours if remains stable 07/21/2017 Patient seen in the room at bedside; wants to be discharged back to [facility]; had small amount of oozing from the wound requiting silver nitrate sticks; no report of bleeding overnight 07/22/2017 Patient is seen and evaluated at bedside; remains afebrile and symptom free; surgical service is following for dressing changes and recommended twice a day that Santyl and enzymatic debridement as needed; [facility] Significant improvement with surgical debridement, IV fluid hydration, IV antibiotics. DC Antibiotics as per ID. Patient has been cleared by all consults for discharge. Patient is being discharged to [facility]. In a stable condition with guarded prognosis Physical exam:VSS, alert and oriented 2, no acute distress.CV: Regular S1 and S2,LUNGS:CTA,ABD: Soft, nontender, positive bowel sounds. NEURO: No focal deficits. The impression and plan of care has been dictated as directed. : I performed a history and examination of this patient, discussed the same with the dictator. I agree with the dictator's note ,documented as a scribe. Any additional findings or plans will be noted. Time taken: 35 minutes Patient Condition at Discharge: Stable Plan - Discharge Summary Discharge Rx Participant: Yes New Discharge Prescriptions: New Acetaminophen Tab [Tylenol] 650 mg PO Q6HR PRN tab PRN Reason: Mild Pain Or Fever > 100.5 Aspirin 325 mg PO DAILY tab Collagenase [Santyl] 1 applic TOPICAL HS@1999 applic Folic Acid 1 mg PO DAILY@1200 tab Levothyroxine Sodium [Synthroid] 112 mcg PO DAILY@0630 tab Multivitamins, Thera [Multivitamin (formulary)] 1 each PO DAILY@1200 tab Pantoprazole [Protonix] 40 mg PO AC-BRKFST tablet. Pschristina Basurto 100% [Metamucil Packet] 6 gm PO DAILY packet Thiamine [Vitamin B-1] 100 mg PO DAILY@1200 tab traMADol HCL [Ultram] 50 mg PO Q6HR PRN #20 tab PRN Reason: Pain Continue Levothyroxine Sodium [Synthroid] 112 mcg PO DAILY Discharge Medication List Levothyroxine Sodium [Synthroid] 112 mcg PO DAILY 07/14/17 [History] Acetaminophen Tab [Tylenol] 650 mg PO Q6HR PRN tab 07/23/17 [Rx] Aspirin 325 mg PO DAILY tab 07/23/17 [Rx] Collagenase [Santyl] 1 applic TOPICAL HS@1999 applic 07/23/17 [Rx] Folic Acid 1 mg PO DAILY@1200 tab 07/23/17 [Rx] Levothyroxine Sodium [Synthroid] 112 mcg PO DAILY@0630 tab 07/23/17 [Rx] Multivitamins, Thera [Multivitamin (formulary)] 1 each PO DAILY@1200 tab [Rx] Pantoprazole [Protonix] 40 mg PO AC-BRKFST tablet. 07/23/17 [Rx] Psyllium Husk 100% [Metamucil Packet] 6 gm PO DAILY packet 07/23/17 [Rx] Thiamine [Vitamin B-1] 100 mg PO DAILY@1200 tab 07/23/17 [Rx] traMADol HCL [Ultram] 50 mg PO Q6HR PRN #20 tab 07/23/17 [Rx] Follow up Appointment(s)/Referral(s): Adis Schroeder MD [REFERRING] - 3 Days Waldemar Marshall DO [Doctor of Osteopathic Medicine] - As Needed Jeevan Reilly DO [Primary Care Provider] - 1 Week (After DC from subacute rehab) Cassi Reyes MD [STAFF PHYSICIAN] - 1 Week (F/U in wound care ctr at [facility] Activity/Diet/Wound Care/Special Instructions: [facility] Antibiotics as per infectious disease Wound care: Wet-to-dry dressing changes twice a day with yessi Bucio in 3 days
--- NOTE | 2017-07-23 15:00 | PN ---
PROGRESS NOTE DATE OF SERVICE: 07/23/2017. REASON FOR FOLLOWUP: 1. Right hip pressure ulcer or cellulitis. 2. Urinary tract infection adequately treated. INTERVAL HISTORY: The patient is afebrile. She is breathing comfortably. Denies having any chest pain, shortness of breath, abdominal pain. Denies any pain in the right hip area. EXAMINATION: Blood pressure is 149/59 with a pulse of 67, temperature 98.4. She is 98% on room air. General description is an elderly female lying in bed in no distress. Respiratory system unlabored breathing. Clear to auscultation anteriorly. Heart S1, S2. Regular rate and rhythm. Abdomen soft, no tenderness. Right hip wound is currently dressed up. No obvious drainage on the dressing. LABS: Hemoglobin 9.8, white count 7.7, BUN of 27, creatinine 0.64. DIAGNOSTIC IMPRESSION AND PLAN: 1. Patient with right hip wound pressure ulcer status post debridement local wound. Continue with Santyl. Moist dressing. Keep the area off the pressure. No need for any systemic antibiotic. Cultures were negative. 2. Patient with urinary tract infection adequately treated, currently off antibiotic therapy. MMODL / IJN: [id number] /
[2017-07-23 16:03] VITALS: BP 93/44; PULSE 69; TEMP 98.3
--- NOTE | 2017-07-25 11:27 | CDI ---
Last Revision, March 2017 Documentation Clarification Form Date: 07/25/17 From: Sharonda Josr Tiffanie Noland, [employer] Welder between 8:30 am & 5 pm Catarino Admit Date: 07/14/2017 4:43:00 PM Patient Name: Winter De Jesus Visit Number: [id number] Discharge Date: 07/23/17 ATTENTION: The Clinical Documentation Specialists (CDI) and [facility] Coding Staff appreciate your assistance in clarifying documentation. Please respond to the clarification below the line at the bottom and electronically sign. The CDI & [facility] Coding staff will review the response and follow-up if needed. Please note: Queries are made part of the Legal Health Record. If you have any questions, please contact the author of this message via ITS. Dr. Waldemar Marshall Your operative report an excisional debridement of Stage III right ischial ulcer was performed. "1% local lidocaine with epi was used to anesthetize the skin and subcutaneous tissues around the ulcer. The ulcer was then unroofed using a 15 blade scalpel. There was necrotic tissue underneath the eschar. This extended approximately 3 cm deep. This tissue was excised sharply." In order to capture the severity of condition and code the appropriate procedure ; please document the depth of the debridement: Skin Subcutaneous tissue and fascia Muscle Tendons Bursa and ligaments Bone Other; please specify Unable to determine (no explanation for clinical findings) Please continue to document in your progress notes and discharge summary in order to capture severity of illness and risk of mortality. Include clinical findings that support your diagnosis. Stage 3 ulcer would indicate that adipose tissue is visible. Depth was documented at 3cm MTDD
--- NOTE | 2017-07-25 12:35 | CDI ---
Last Revision, March 2017 Documentation Clarification Form Date: 07/25/17 From: Sharonda Josr Tiffanie Noland, Fire Hose Curer between 8:30 am & 5 pm Catarino Admit Date: 07/14/2017 4:43:00 PM Patient Name: Winter De Jesus Visit Number: [id number] Discharge Date: 07/23/17 ATTENTION: The Clinical Documentation Specialists (CDI) and [facility] Coding Staff appreciate your assistance in clarifying documentation. Please respond to the clarification below the line at the bottom and electronically sign. The CDI & [facility] Coding staff will review the response and follow-up if needed. Please note: Queries are made part of the Legal Health Record. If you have any questions, please contact the author of this message via ITS. Dr. Maria A Dias Patient admitted with rhabdomyolysis, acute on chronic kidney injury, UTI/sepsis , & decubitus ulcer. Current BUN: 45, 35, 23, 17, 20, 24, 32, 25, 27 Current CR: 1.20, 0.85, 0.62, 0.60, 0.70, 0.60, 0.70, 0.60, 0.64 Current GFR: 44, 66, 87, 88, 83, 88, 83, 88, 86 Patients Baseline: BUN/CR/GFR: unknown Treatment: IV hydration Patients medications include: home meds - Synthroid In order to capture the severity of condition, please clarify if the condition signifies: CKD Stage 1 (GFR > 90) CKD Stage 2 (GFR 60-89) CKD Stage 3 (GFR 30-59) CKD Stage 4 (GFR 15-29) CKD Stage 5 (GFR <15) ESRD Other, please specify Unable to determine Please continue to document in your progress notes and discharge summary in order to capture severity of illness and risk of mortality. Include clinical findings that support your diagnosis. pre renal ___ MTDD
== END 2017-07-23 18:00 | DRG 853 ==
LOC: EC 13:40 → 6SEL 16:43 → 5MS5E 07-21 19:29
PROVIDERS: ADMIT Hospitalist; ATTEND Hospitalist
PROC: 0JB70ZZ Excision of Back Subcutaneous Tissue and Fascia, Open Approach (ICD-10-PCS; principal; 2017-07-19)
DX: A41.9 Sepsis, unspecified organism (principal); N17.0 Acute kidney failure with tubular necrosis; M62.82 Rhabdomyolysis; N39.0 Urinary tract infection, site not specified; L03.317 Cellulitis of buttock; L89.210 Pressure ulcer of right hip, unstageable; E86.0 Dehydration; F03.90 Unspecified dementia, unspecified severity, without behavioral disturbance, psychotic disturbance, mood disturbance, and anxiety; S91.012A Laceration without foreign body, left ankle, initial encounter; I10 Essential (primary) hypertension; R39.2 Extrarenal uremia; S90.01XA Contusion of right ankle, initial encounter; E03.9 Hypothyroidism, unspecified; R26.9 Unspecified abnormalities of gait and mobility; R32 Unspecified urinary incontinence; Z79.890 Hormone replacement therapy; Z87.891 Personal history of nicotine dependence; Z90.710 Acquired absence of both cervix and uterus; Z87.311 Personal history of (healed) other pathological fracture; Z91.81 History of falling; Z90.49 Acquired absence of other specified parts of digestive tract; Z88.0 Allergy status to penicillin; W19.XXXA Unspecified fall, initial encounter; Y92.003 Bedroom of unspecified non-institutional (private) residence as the place of occurrence of the external cause; Z96.641 Presence of right artificial hip joint; Z82.49 Family history of ischemic heart disease and other diseases of the circulatory system
CPT/HCPCS: 36415; 70450; 71046; 72100; 73502; 80048; 80053; 80202; 81001; 82550; 82553; 82570; 83036; 83605; 84156; 84439; 84443; 84484; 85025; 85610; 85730; 87040; 87070; 87086; 87205; 93005; 93306; 94760; 96365; 96367; 99285

== ENCOUNTER 2018-07-01 07:24 | Day surgery (SDC) | payer MEDICARE, OTHER ==
[2018-06-26 16:01] VITALS: BMI 23.6
[~2018-07-01 07:24] MED LIST: LACTATED RINGERS 1,000 ML IV SCH
[2018-07-01 08:03] VITALS: RESP 16; TEMP 97.2
[2018-07-01] MEDS ORDERED: LIDOCAINE 1% 20 ML VIAL (10MG/ML) FOR IV START INTRADERMA ONE (08:10)
[2018-07-01] MEDS ORDERED: PROPOFOL 10 MG/ML 20 ML VIAL IV ONE (08:52)
[2018-07-01] MEDS ORDERED: LIDOCAINE 1% INJ 10MG/ML (20 ML MDV) ONE (08:52)
--- NOTE | 2018-07-01 09:46 | P.PCN ---
Date of Procedure: 07/01/18 Procedure(s) Performed: Procedure: 1. Esophagogastroduodenoscopy and biopsy. 2. Total colonoscopy. Preoperative diagnosis: Occult positive stools and family history of colon cancer. Postoperative diagnosis: 1. Mild gastritis and duodenitis. 2. Mild sigmoid diverticulosis. 3. No ulcers, polyps or cancer. 4. Gastric contents showed spontaneous low-grade bleeding with no definite ulcers or tumors. 5. Biopsies obtained from the antrum. Preparation: HalfLytely prep. Sedation: Was provided by anesthesia. Brief clinical history: The patient is a 77-year-old female who was evaluated in the office earlier this month because of blood in her stools and family history of colon cancer in her father. She had a prior colonoscopy years back. No overt bleeding. Procedure: With the patient on her left lateral decubitus position and after informed consent and adequate sedation, I passed a RED INNOVAGIF a 20 video upper endoscope through the cricopharyngeus down the esophagus. GE junction was around 36 cm from the incisors and there was a small sliding hiatal hernia with no obvious esophagitis or complicated reflux disease. The endoscope was then advanced into the stomach which was insufflated with air and inspected in detail including the retroflex maneuver in the cardia gastric secretions and contents showed some dark bloody discoloration which was thoroughly washed but there was no ulcers or tumors or any evidence of a specific source of bleeding. The underlying mucosa showed some mottling and erythema consistent with mild gastritis. Pyloric channel did not show any ulcers. Duodenal bulb, post bulbar area and descending duodenum showed erythema and friability but no ulcers, erosions or bleeding. I obtained biopsies from the antrum then the endoscope was withdrawn and I proceeded with the colonoscopy. Perianal area did not show any fissures or fistulas. There were no masses felt on digital rectal examination. The Olympus CFH 190L video colonoscope was then inserted in the rectum in the usual fashion and advanced to the cecum. The mucosa appeared healthy. All fecal material and fecal water encountered was greenish in color. There was occasional small diverticular orifices scattered in the sigmoid. No polyps or tumors were seen. I retroflexed the endoscope in the rectum before the endoscope was withdrawn. The patient tolerated the procedure well. Plan: The patient was reassured. Will maintain treatment for gastritis and duodenitis and monitor blood counts. Further plans based on her course.
[2018-07-01 10:07] VITALS: BP 171/81; PULSE 69
== END 2018-07-01 10:56 | disposition home or self-care (01) ==
LOC: ORWHC2ENDO 07:24
DX: K29.80 Duodenitis without bleeding (principal); K29.51 Unspecified chronic gastritis with bleeding; K31.89 Other diseases of stomach and duodenum; K21.9 Gastro-esophageal reflux disease without esophagitis; K44.9 Diaphragmatic hernia without obstruction or gangrene; K57.30 Diverticulosis of large intestine without perforation or abscess without bleeding; E07.9 Disorder of thyroid, unspecified; M62.82 Rhabdomyolysis; I10 Essential (primary) hypertension; Z86.79 Personal history of other diseases of the circulatory system; Z80.0 Family history of malignant neoplasm of digestive organs; Z88.0 Allergy status to penicillin; Z79.82 Long term (current) use of aspirin; Z79.890 Hormone replacement therapy; Z79.899 Other long term (current) drug therapy
CPT/HCPCS: 88305; 45378; 43239; J2001; J2704